=== PATIENT | female | born 1985 | race Caucasian/White ===

== ENCOUNTER 2016-10-06 14:47 | Emergency (ER) | payer OTHER ==
[~2016-10-06 14:47] MED LIST: BACT800T PO; LORA0.5T PO; PAXI20TA PO
[2016-10-06] MEDS ORDERED: CLINDAMYCIN INJ 900MG/6ML VIAL As Ordered ONE (17:11)
--- NOTE | 2016-10-06 17:32 | REP ---
Clinical: Bilateral upper extremity swelling evaluate for abscess. Technique: Real time vaughan scale and color evaluation using linear high frequency transducer. Findings: Ultrasound examination of the bilateral upper extremities performed and demonstrates significant diffuse bilateral subcutaneous edema. Right upper extremity at the level of the distal forearm in the site of maximal erythema demonstrates complex insinuating fluid without discrete drainable collection. Left upper extremity in the region of the antecubital fossa demonstrates complex insinuating fluid with small discrete collection measuring 6 x 9 x 13 mm. Impression: Diffuse bilateral subcutaneous edema with insinuating complex fluid on the right forearm and small complex collection in the left antecubital fossa. Signed by Rufino Leiva MD 10/06/2016 05:23 P
[2016-10-06 18:00] LABS: BASO % 0.7 % (0.0-1.0); EOS # 0.2 K/mm3 (0.0-0.50); EOS % 2.8 % (0.0-3.0); LARGE UNSTAINED CELL # 0.2 K/mm3 (0.0-0.4); LYMPH # 2.4 K/mm3 (1.5-6.5); MEAN CORPUSCULAR HEMOGLOBIN 28.6 pg (27.0-33.0); MEAN CORPUSCULAR HGB CONC 32.7 g/dl (32.0-36.5); MEAN CORPUSCULAR VOLUME 87.3 fl (80.0-96.0); MONO # 0.4 K/mm3 (0.0-0.8); MONO % 5.9 % (0.0-5.0); NEUTROPHILS # 3.6 K/mm3 (1.8-7.7); NEUTROPHILS % 52.6 % (36.0-66.0); PLATELET COUNT, AUTOMATED 333 k/mm3 (150-450); RED CELL DISTRIBUTION WIDTH 13.7 % (11.5-14.5); WHITE BLOOD COUNT 6.8 K/mm3 (4.0-10.0)
[2016-10-06 18:13] LABS: ANION GAP 5 MEQ/L (8-16); BLOOD UREA NITROGEN 12 MG/DL (7-18); CALCIUM LEVEL 9.5 MG/DL (8.5-10.1); CARBON DIOXIDE LEVEL 32 MEQ/L (21-32); CHLORIDE LEVEL 102 MEQ/L (98-107); CREATININE FOR GFR 0.65 MG/DL (0.55-1.02); GLOMERULAR FILTRATION RATE > 60.0 (>60); GLUCOSE, FASTING 94 MG/DL (70-105); POTASSIUM SERUM 4.2 MEQ/L (3.5-5.1); SODIUM LEVEL 139 MEQ/L (136-145)
[2016-10-06 18:37] LABS: ERYTHROCYTE SEDIMENTATION RATE 8 mm/hr (0-20)
--- NOTE | 2016-10-06 20:20 | EDDOCDS ---
Nurse's Notes [facility] Name: Marla Washington Age: 31 yrs Sex: Female : 1985 Arrival Date: 10/06/2016 Time: 14:47 Bed I1 / M1 Private MD: Violetta Mancini S Diagnosis: Cellulitis of left upper limb;Cellulitis of right upper limb Presentation: 10/06 15:00 Presenting complaint: Patient states: redness and swelling to LAC and right forearm. srm symptoms for 2 days. Adult Sepsis Screening: The patient does not have new or worsening altered mentation. Patient's respiratory rate is less than 22. Systolic blood pressure is greater than 100. Patient has a qSOFA score of 0- Negative Sepsis Screen. Suicide/Homicide risk assessment- the patient denies having any suicidal and/or homicidal ideations and does not present with any other emotional, behavioral or mental health complaints. Status: Patient is not a social services analyst or dependent. Transition of care: patient was not received from another setting of care. 15:00 Acuity: KRISH Level 3 srm 15:00 Method Of Arrival: Walkin/Carried/Asstd srm Triage Assessment: 15:03 General: Appears in no apparent distress, Behavior is appropriate for age, cooperative. srm Pain: Pain currently is 7 out of 10 on a pain scale. At worst was 10 out of 10 on a pain scale. HIV screening NA for this visit Offered previously. 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 Methadone 35mg Oral once daily (Last dose: 10/06/2016) 2. albuterol sulfate 90 mcg/actuation Inhl HFAA every 4-6 hours prn - PMHx: Bipolar disorder; Hepatitis C; Kidney stones; polysubstance abuse; Asthma; SVT; - PSHx: HERNIA REPAIR; (July 2011); Cardiac Ablation; Sinus Surgery; KIDNEY STENTS; Ovarian Cystectomy- Left; Laparoscopy; - Social history: Smoking status: Patient uses tobacco products, current every day smoker. No barriers to communication noted, The patient speaks fluent Maldivian, Speaks appropriately for age. - Family history: Not pertinent. - : The pt / caregiver states he / she is not on anticoagulants. Home medication list is obtained from the patient. - Exposure Risk Screening:: None identified. Screenin:49 Screening information is obtained from the patient. Fall risk: No risks identified. jmk Assistance ADL's: requires no assistance with activities of daily living. Abuse/DV Screen: The patient / caregiver reports he/she is:. Nutritional screening: No deficits noted. Advance Directives: Currently, there is no health care proxy. There is no active DNR order. There is no living will. 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 Advance directive information has not previously been placed in an [facility] medical record. home support is adequate. Assessment: 17:00 Adult Sepsis Screening: The patient does not have new or worsening altered mentation. kc3 Patient's respiratory rate is less than 22. Systolic blood pressure is greater than 100. Patient has a qSOFA score of 0- Negative Sepsis Screen. 17:49 General: Appears in no apparent distress, alert and cooperative. 2" area of redness jmk swelling and firmness to right forearm. 3" area of swelling with redness and increased warmth to left ac space. Pulses intact. Multiple tract mercedes over both forearms. openly admits to intravenous drug use.. 18:28 General: Appears resting with eyes closed resp easy and regular. clindamycin infusing jmk without event. 19:28 General: Appears in no apparent distress, assumed care of pt at this time, rr even and af2 unlabored. offers no complaints. . 20:17 General: Appears in no apparent distress, Behavior is cooperative. Pain: Location: mcp right arm and left arm Pain currently is 3 out of 10 on a pain scale. Neurological: No deficits noted. Respiratory: Airway is patent Respiratory effort is even, unlabored. Derm: Skin is pink, warm & dry. Abscess located on right arm and left arm is hot to touch, is red, is raised. Musculoskeletal: Circulation, motion, and sensation intact. Social Work Consult: 20:19 LWBS/AMA AMA: Patient is refusing further stabilizing treatment at [facility], although cl offered treatment regardless of method of payment or ability to pay. Patient is aware that this action is being undertaken against the advice of the medical staff at [facility]. Pt. has capacity to understand the potential consequences of this choice. pt did notify ED staff. Pt left before being seen by PSA. Vital Signs: 14:48 BP 148 / 89; Pulse 93; Resp 18 S; Temp 97.8(O); Pulse Ox 98% on R/A; Weight 70.76 kg dd6 (R); Height 5 ft. 4 in. (162.56 cm) (R); 14:48 Body Mass Index 26.78 (70.76 kg, 162.56 cm) dd6 Vitals: 14:48 Log In Time: October 06, 2016 at 14:46. dd6 ED Course: 14:48 Patient visited by Carson Woodson PCA. dd6 14:48 Violetta Mancini is Private Physician. dd6 14:48 Patient moved to Waiting dd6 14:49 Patient moved to Pre RCE dd6 15:01 Triage Initiated srm 16:02 Patient visited by Diana Altamirano PCA. jb5 16:02 Patient moved to Triage 3 jb5 16:33 Patient visited by Diana Altamirano PCA. jb5 16:40 Brandt [facility]-C [facility]. ck7 16:40 Caitlin García MD is Attending Physician. ck7 16:40 Patient visited by Brandt Javier RPA-C. ck7 16:52 Patient moved to I1 / M1 dy 17:09 [facility] Payment Agreement was scanned into [employer] and attached to record. gjb 17:10 Patient visited by Brandt Javier RPA-C. ck7 17:44 CBC with Diff Sent. nb2 17:44 MED Profile Sent. nb2 17:44 -Blood Culture Sent. nb2 17:44 Lactic Acid (Saez tube on ice) Sent. nb2 17:44 ESR Sent. nb2 17:44 CRP Sent. nb2 17:44 BLOOD CULTURES Sent. nb2 17:44 Inserted saline lock: 22 gauge in right and blood collected. The patient tolerated the dy procedure well. upper arm. 17:49 The patient / caregiver is instructed regarding the plan of care and ED course. jmk 17:49 Missed attempts: 20 gauge in right antecubital area. jmk 18:12 Patient visited by Brandt Javier RPA-C. ck7 18:12 EXTREMITY NON VASCUL LIMITED Returned. EDMS 18:28 Patient visited by Yury Hammonds RN. jmk 19:02 Patient visited by Brandt Javier RPA-C. ck7 19:28 Patient visited by Berta Mace RN. af2 20:01 Patient visited by Brandt Javier RPA-C. ck7 20:02 Violetta Mancini is Referral Physician. ck7 20:18 Discontinued lock intact, bleeding controlled, pressure dressing applied, No mcp redness/swelling at site. No procedures done that require assistance. Administered Medications: 17:46 Drug: NS 0.9% 1000 ml Route: IV; Rate: bolus; Site: right upper arm; jmk 17:46 Drug: Clindamycin 900 mg Route: IVPB; Infused Over: 30 mins; Site: left upper arm; [facility] Order Results: Lab Order: CBC with Diff; SPEC'M 10/06/16 17:40 Test: WHITE BLOOD COUNT; Value: 6.8; Range: 4.0-10.0; Units: K/mm3; Status: F Test: RED BLOOD COUNT; Value: 5.18; Range: 4.00-5.40; Units: M/mm3; Status: F Test: HEMOGLOBIN; Value: 14.8; Range: 12.0-16.0; Units: g/dl; Status: F Test: HEMATOCRIT; Value: 45.2; Range: 36.0-47.0; Units: %; Status: F Test: MEAN CORPUSCULAR VOLUME; Value: 87.3; Range: 80.0-96.0; Units: fl; Status: F Test: MEAN CORPUSCULAR HEMOGLOBIN; Value: 28.6; Range: 27.0-33.0; Units: pg; Status: F Test: MEAN CORPUSCULAR HGB CONC; Value: 32.7; Range: 32.0-36.5; Units: g/dl; Status: F Test: RED CELL DISTRIBUTION WIDTH; Value: 13.7; Range: 11.5-14.5; Units: %; Status: F Test: PLATELET COUNT, AUTOMATED; Value: 333; Range: 150-450; Units: k/mm3; Status: F Test: NEUTROPHILS %; Value: 52.6; Range: 36.0-66.0; Units: %; Status: F Test: LYMPH %; Value: 35.0; Range: 24.0-44.0; Units: %; Status: F Test: MONO %; Value: 5.9; Range: 0.0-5.0; Abnormal: Above high normal; Units: %; Status: F Test: EOS %; Value: 2.8; Range: 0.0-3.0; Units: %; Status: F Test: BASO %; Value: 0.7; Range: 0.0-1.0; Units: %; Status: F Test: LARGE UNSTAINED CELL %; Value: 3.0; Range: 0.0-4.0; Units: %; Status: F Test: NEUTROPHILS #; Value: 3.6; Range: 1.8-7.7; Units: K/mm3; Status: F Test: LYMPH #; Value: 2.4; Range: 1.5-6.5; Units: K/mm3; Status: F Test: MONO #; Value: 0.4; Range: 0.0-0.8; Units: K/mm3; Status: F Test: EOS #; Value: 0.2; Range: 0.0-0.50; Units: K/mm3; Status: F Test: BASO #; Value: 0.0; Range: 0.0-0.2; Units: K/mm3; Status: F Test: LARGE UNSTAINED CELL #; Value: 0.2; Range: 0.0-0.4; Units: K/mm3; Status: F Lab Order: MED Profile; SPEC'M 10/06/16 17:40 Test: GLUCOSE, FASTING; Value: 94; Range: 70-105; Units: MG/DL; Status: F Test: BLOOD UREA NITROGEN; Value: 12; Range: 7-18; Units: MG/DL; Status: F Test: CREATININE FOR GFR; Value: 0.65; Range: 0.55-1.02; Units: MG/DL; Status: F Test: GLOMERULAR FILTRATION RATE; Value: > 60.0; Range: >60; Status: F Test: SODIUM LEVEL; Value: 139; Range: 136-145; Units: MEQ/L; Status: F Test: POTASSIUM SERUM; Value: 4.2; Range: 3.5-5.1; Units: MEQ/L; Status: F Test: CHLORIDE LEVEL; Value: 102; Range: 98-107; Units: MEQ/L; Status: F Test: CARBON DIOXIDE LEVEL; Value: 32; Range: 21-32; Units: MEQ/L; Status: F Test: ANION GAP; Value: 5; Range: 8-16; Abnormal: Below low normal; Units: MEQ/L; Status: F Test: CALCIUM LEVEL; Value: 9.5; Range: 8.5-10.1; Units: MG/DL; Status: F Test Note: ; Units are mL/min/1.73 m2 Chronic Kidney Disease Staging per NKF: Stage I & II GFR >=60 Normal to Mildly Decreased Stage III GFR 30-59 Moderately Decreased Stage IV GFR 15-29 Severely Decreased Stage V GFR <15 Very Little GFR Left ESRD GFR <15 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 Lab Order: Lactic Acid (Saez tube on ice); SPEC'M 10/06/16 17:40 Test: LACTIC ACID LEVEL, LACTATE; Value: 2.0; Range: 0.4-2.0; Units: MMOL/L; Status: F Lab Order: ESR; SPEC' 10/06/16 17:40 Test: ERYTHROCYTE SEDIMENTATION RATE; Value: 8; Range: 0-20; Units: mm/hr; Status: F Lab Order: CRP; SPEC'M 10/06/16 17:40 Test: C REACTIVE PROTEIN QUANTITATIV; Value: 2.46; Range: 0.00-0.30; Abnormal: Above high normal; Units: MG/DL; Status: F Radiology Order: EXTREMITY NON VASCUL LIMITED Test: EXTREMITY NON VASCUL LIMITED REASON FOR EXAMINATION: R/O LEFT AC ABSCESS, R FOREARM;Deformity/Swelling; Clinical: Bilateral upper extremity swelling evaluate for abscess.; ; Technique: Real time saez scale and color evaluation using linear high frequency; transducer.; ; Findings:; Ultrasound examination of the bilateral upper extremities performed and; demonstrates significant diffuse bilateral subcutaneous edema.; ; Right upper extremity at the level of the distal forearm in the site of maximal; erythema demonstrates complex insinuating fluid without discrete drainable; collection.; ; Left upper extremity in the region of the antecubital fossa demonstrates complex; insinuating fluid with small discrete collection measuring 6 x 9 x 13 mm.; ; Impression:; Diffuse bilateral subcutaneous edema with insinuating complex fluid on the right; forearm and small complex collection in the left antecubital fossa.; ; ; Signed by; Rufino Leiva MD 10/06/2016 05:23 P; Outcome: 20:02 Patient left against medical advice. ck7 20:18 Discharge Assessment: patient administered narcotics - no. The following High Risk [facility] Discharge criteria are identified: None. Discharged to home ambulatory. Condition: stable. Discharge instructions given to patient, Instructed on discharge instructions, follow up and referral plans. medication usage, wound care, Demonstrated understanding of instructions, medications, Pt was receptive of discharge instructions/ teaching. Prescriptions given X 1. No special radiology studies were completed. Property sent home with patient. 20:19 Patient left the ED. [facility] Signatures: Dispatcher [employer] EDMS Yury Hammonds,RN RN Radha Real RN RN Xin Hernandez, RN RN Qasim Colón, PSA PSA Gabriel Naranjo, RN RN Diana Min, STATE GAME PROTECTOR STATE GAME PROTECTOR jb5 Carson Woodson, STATE GAME PROTECTOR STATE GAME PROTECTOR dd6 Brandt Javier, RPA-C RPA-Cck7 Berta MaceRN RN phillip2 Angélica Fried RN RN [id number] Emilie Martinez Nicole nb2 JENNA
--- NOTE | 2016-10-06 20:20 | EDDOCDS ---
Physician Documentation [facility] Name: Marla Washington Age: 31 yrs Sex: Female : 1985 Arrival Date: 10/06/2016 Time: 14:47 Bed I1 / M1 Private MD: Violetta Mancini S Disposition: 10/06/16 20:02 Patient has left against medical advice. Impression: Cellulitis of left upper limb, Cellulitis of right upper limb. - Patients states they are going to Home/Self Care. - Condition is Stable. - Discharge Instructions: Cellulitis. - Prescriptions for Clindamycin HCl 300 mg Oral Capsule - take 1 capsule by ORAL route every 6 hours; 40 capsule. Medication Reconciliation, Local Pharmacy Hours form. Follow up: Emergency Department; When: As needed; Reason: Recheck today's complaints, Worsening of conditions, Continuance of care. Follow up: Violetta Mancini; When: 2 - 3 days; Reason: Recheck today's complaints, Continuance of care. - Problem is new. - Symptoms are unchanged. - Notes: YOU WERE OFFERED ADMISSION TONIGHT AND HAVE DECLINED, PLEASE RETURN TO THE ER TOMORROW MORNING FOR RE-EVALUATION, YOU ARE BEING GIVEN A SCRIPT FOR CLINDAMYCIN IN CASE YOU ARE UNABLE TO COME BACK TOMORROW, IT IS STRONGLY ADVISED THAT YOU COME BACK TO HAVE THIS MONITORED Historical: - Allergies: no known allergies; - Home Meds: 1. Methadone 35mg Oral once daily (Last dose: 10/06/2016) 2. albuterol sulfate 90 mcg/actuation Inhl HFAA every 4-6 hours prn - PMHx: Bipolar disorder; Hepatitis C; Kidney stones; polysubstance abuse; Asthma; SVT; - PSHx: HERNIA REPAIR; (July 2011); Cardiac Ablation; Sinus Surgery; KIDNEY STENTS; Ovarian Cystectomy- Left; Laparoscopy; - Social history: Smoking status: Patient uses tobacco products, current every day smoker. No barriers to communication noted, The patient speaks fluent Hungarian, Speaks appropriately for age. - Family history: Not pertinent. - : The pt / caregiver states he / she is not on anticoagulants. Home medication list is obtained from the patient. - Exposure Risk Screening:: None identified. 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 4 in. (162.56 cm) (R); 14:48 Body Mass Index 26.78 (70.76 kg, 162.56 cm) dd6 MDM: 16:46 -Blood Culture (Adults Only), peripheral from different site, or from device/port/PICC ck7 etc. if present ordered. 16:46 IV Saline Lock ordered. ck7 16:46 NS 0.9% 1000 ml IV at bolus once ordered. ck7 16:46 Clindamycin 900 mg IVPB once over 30 mins; dilute in 50mL of NS or D5W ordered. ck7 16:46 CBC with Diff Ordered. EDMS 16:46 MED Profile Ordered. EDMS 16:47 -Blood Culture Ordered. EDMS 16:47 Lactic Acid (Saez tube on ice) Ordered. EDMS 16:47 ESR Ordered. EDMS 16:47 CRP Ordered. EDMS 16:53 EXTREMITY NON VASCUL LIMITED Ordered. EDMS 17:02 -Blood Culture (Adults Only), peripheral from different site, or from device/port/PICC jb5 etc. if present complete. 17:04 BLOOD CULTURES Ordered. EDMS 17:09 [facility] Payment Agreement was scanned into [employer] and attached to record. gjb 17:09 Financial registration complete. gjb 18:12 CBC with Diff Reviewed. ck7 18:12 EXTREMITY NON VASCUL LIMITED Reviewed. ck7 20:10 CBC with Diff Reviewed. ck7 20:10 MED Profile Reviewed. ck7 20:10 CRP Reviewed. ck7 20:10 Lactic Acid (Saez tube on ice) Reviewed. ck7 20:10 ESR Reviewed. ck7 Administered Medications: 17:46 Drug: NS 0.9% 1000 ml Route: IV; Rate: bolus; Site: right upper arm; arelis 17:46 Drug: Clindamycin 900 mg Route: IVPB; Infused Over: 30 mins; Site: left upper arm; arelis Signatures: Dispatcher [employer] EDMS Yury Hammonds RN RN jmk Michelson, Staci, RN RN srm Peters, Mary, RN RN mcp Baker, Janet, KOBI CUSTODIAL AIDE jb5 Brandt Javier, RPA-C RPA-Cck7 Emilie Martinez The chart was reviewed and I authenticate all verbal orders and agree with the evaluation and treatment provided.Corrections: (The following items were deleted from the chart) 16:53 16:48 DUPLEX Ext. UPPER UNILATE+US ordered. EDMS EDMS Attachments: 17:09 [facility] Payment Agreement karin [email or web address]
--- NOTE | 2016-10-08 21:20 | EDDOCDS ---
Nurse's Notes [facility] Name: Marla Washington Age: 31 yrs Sex: Female : 1985 Arrival Date: 10/06/2016 Time: 14:47 Bed I1 / M1 Private MD: Violetta Mancini S Diagnosis: Cellulitis of left upper limb;Cellulitis of right upper limb Presentation: 10/06 15:00 Presenting complaint: Patient states: redness and swelling to LAC and right forearm. srm symptoms for 2 days. Adult Sepsis Screening: The patient does not have new or worsening altered mentation. Patient's respiratory rate is less than 22. Systolic blood pressure is greater than 100. Patient has a qSOFA score of 0- Negative Sepsis Screen. Suicide/Homicide risk assessment- the patient denies having any suicidal and/or homicidal ideations and does not present with any other emotional, behavioral or mental health complaints. Status: Patient is not a director of therapy services or dependent. Transition of care: patient was not received from another setting of care. 15:00 Acuity: KRISH Level 3 srm 15:00 Method Of Arrival: Walkin/Carried/Asstd srm Triage Assessment: 15:03 General: Appears in no apparent distress, Behavior is appropriate for age, cooperative. srm Pain: Pain currently is 7 out of 10 on a pain scale. At worst was 10 out of 10 on a pain scale. HIV screening NA for this visit Offered previously. 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 Methadone 35mg Oral once daily (Last dose: 10/06/2016) 2. albuterol sulfate 90 mcg/actuation Inhl HFAA every 4-6 hours prn - PMHx: Bipolar disorder; Hepatitis C; Kidney stones; polysubstance abuse; Asthma; SVT; - PSHx: HERNIA REPAIR; (July 2011); Cardiac Ablation; Sinus Surgery; KIDNEY STENTS; Ovarian Cystectomy- Left; Laparoscopy; - Social history: Smoking status: Patient uses tobacco products, current every day smoker. No barriers to communication noted, The patient speaks fluent [place], Speaks appropriately for age. - Family history: Not pertinent. - : The pt / caregiver states he / she is not on anticoagulants. Home medication list is obtained from the patient. - Exposure Risk Screening:: None identified. Screenin:49 Screening information is obtained from the patient. Fall risk: No risks identified. jmk Assistance ADL's: requires no assistance with activities of daily living. Abuse/DV Screen: The patient / caregiver reports he/she is:. Nutritional screening: No deficits noted. Advance Directives: Currently, there is no health care proxy. There is no active DNR order. There is no living will. There is no Power of Patient Accounts Clerk. Advance directive information has not previously been placed in an [facility] medical record. home support is adequate. Assessment: 17:00 Adult Sepsis Screening: The patient does not have new or worsening altered mentation. kc3 Patient's respiratory rate is less than 22. Systolic blood pressure is greater than 100. Patient has a qSOFA score of 0- Negative Sepsis Screen. 17:49 General: Appears in no apparent distress, alert and cooperative. 2" area of redness jmk swelling and firmness to right forearm. 3" area of swelling with redness and increased warmth to left ac space. Pulses intact. Multiple tract mercedes over both forearms. openly admits to intravenous drug use.. 18:28 General: Appears resting with eyes closed resp easy and regular. clindamycin infusing jmk without event. 19:28 General: Appears in no apparent distress, assumed care of pt at this time, rr even and af2 unlabored. offers no complaints. . 20:17 General: Appears in no apparent distress, Behavior is cooperative. Pain: Location: mcp right arm and left arm Pain currently is 3 out of 10 on a pain scale. Neurological: No deficits noted. Respiratory: Airway is patent Respiratory effort is even, unlabored. Derm: Skin is pink, warm & dry. Abscess located on right arm and left arm is hot to touch, is red, is raised. Musculoskeletal: Circulation, motion, and sensation intact. Social Work Consult: 20:19 LWBS/AMA AMA: Patient is refusing further stabilizing treatment at [facility], although cl offered treatment regardless of method of payment or ability to pay. Patient is aware that this action is being undertaken against the advice of the medical staff at [facility]. Pt. has capacity to understand the potential consequences of this choice. pt did notify ED staff. Pt left before being seen by PSA. Vital Signs: 14:48 BP 148 / 89; Pulse 93; Resp 18 S; Temp 97.8(O); Pulse Ox 98% on R/A; Weight 70.76 kg dd6 (R); Height 5 ft. 4 in. (162.56 cm) (R); 20:15 BP 122 / 80; Pulse 86; Resp 18; Temp 97.4(O); Pulse Ox 100% on R/A; Pain 3/10; mcp 14:48 Body Mass Index 26.78 (70.76 kg, 162.56 cm) dd6 Vitals: 14:48 Log In Time: October 06, 2016 at 14:46. dd6 ED Course: 14:48 Patient visited by Carson Woodson PCA. dd6 14:48 Violetta Mancini is Private Physician. dd6 14:48 Patient moved to Waiting dd6 14:49 Patient moved to Pre RCE dd6 15:01 Triage Initiated srm 16:02 Patient visited by Diana Altamirano PCA. jb5 16:02 Patient moved to Triage 3 jb5 16:33 Patient visited by Diana Altamirano PCA. jb5 16:40 Brandt Javier RPA-C is PHCP. ck7 16:40 Caitlin García MD is Attending Physician. ck7 16:40 Patient visited by Brandt Javier RPA-C. ck7 16:52 Patient moved to I1 / M1 dy 17:09 [facility] Payment Agreement was scanned into [employer] and attached to record. gjb 17:10 Patient visited by Brandt Javier RPA-C. ck7 17:44 CBC with Diff Sent. nb2 17:44 MED Profile Sent. nb2 17:44 -Blood Culture Sent. nb2 17:44 Lactic Acid (Saez tube on ice) Sent. nb2 17:44 ESR Sent. nb2 17:44 CRP Sent. nb2 17:44 BLOOD CULTURES Sent. nb2 17:44 Inserted saline lock: 22 gauge in right and blood collected. The patient tolerated the dy procedure well. upper arm. 17:49 The patient / caregiver is instructed regarding the plan of care and ED course. jmk 17:49 Missed attempts: 20 gauge in right antecubital area. jmk 18:12 Patient visited by Brandt Javier RPA-C. ck7 18:12 EXTREMITY NON VASCUL LIMITED Returned. EDMS 18:28 Patient visited by Yury Hammonds,COLEMAN. jmk 19:02 Patient visited by Brandt Javier RPA-C. ck7 19:28 Patient visited by Berta Mace RN. af2 20:01 Patient visited by Brandt Javier RPA-C. ck7 20:02 Violetta Mancini is Referral Physician. ck7 20:18 Discontinued lock intact, bleeding controlled, pressure dressing applied, No mcp redness/swelling at site. No procedures done that require assistance. 10/07 09:34 Refusal of Services was scanned into [employer] Website and attached to record. 09:34 T-Sheet-- Draft Copy was scanned into [employer] and attached to record. gb Administered Medications: 10/06 17:46 Drug: NS 0.9% 1000 ml Route: IV; Rate: bolus; Site: right upper arm; rivka 17:46 Drug: Clindamycin 900 mg Route: IVPB; Infused Over: 30 mins; Site: left upper arm; rivka Attachments: 10/07 09:34 Refusal of Services Order Results: Lab Order: CBC with Diff; SPEC'M 10/06/16 17:40 Test: WHITE BLOOD COUNT; Value: 6.8; Range: 4.0-10.0; Units: K/mm3; Status: F Test: RED BLOOD COUNT; Value: 5.18; Range: 4.00-5.40; Units: M/mm3; Status: F Test: HEMOGLOBIN; Value: 14.8; Range: 12.0-16.0; Units: g/dl; Status: F Test: HEMATOCRIT; Value: 45.2; Range: 36.0-47.0; Units: %; Status: F Test: MEAN CORPUSCULAR VOLUME; Value: 87.3; Range: 80.0-96.0; Units: fl; Status: F Test: MEAN CORPUSCULAR HEMOGLOBIN; Value: 28.6; Range: 27.0-33.0; Units: pg; Status: F Test: MEAN CORPUSCULAR HGB CONC; Value: 32.7; Range: 32.0-36.5; Units: g/dl; Status: F Test: RED CELL DISTRIBUTION WIDTH; Value: 13.7; Range: 11.5-14.5; Units: %; Status: F Test: PLATELET COUNT, AUTOMATED; Value: 333; Range: 150-450; Units: k/mm3; Status: F Test: NEUTROPHILS %; Value: 52.6; Range: 36.0-66.0; Units: %; Status: F Test: LYMPH %; Value: 35.0; Range: 24.0-44.0; Units: %; Status: F Test: MONO %; Value: 5.9; Range: 0.0-5.0; Abnormal: Above high normal; Units: %; Status: F Test: EOS %; Value: 2.8; Range: 0.0-3.0; Units: %; Status: F Test: BASO %; Value: 0.7; Range: 0.0-1.0; Units: %; Status: F Test: LARGE UNSTAINED CELL %; Value: 3.0; Range: 0.0-4.0; Units: %; Status: F Test: NEUTROPHILS #; Value: 3.6; Range: 1.8-7.7; Units: K/mm3; Status: F Test: LYMPH #; Value: 2.4; Range: 1.5-6.5; Units: K/mm3; Status: F Test: MONO #; Value: 0.4; Range: 0.0-0.8; Units: K/mm3; Status: F Test: EOS #; Value: 0.2; Range: 0.0-0.50; Units: K/mm3; Status: F Test: BASO #; Value: 0.0; Range: 0.0-0.2; Units: K/mm3; Status: F Test: LARGE UNSTAINED CELL #; Value: 0.2; Range: 0.0-0.4; Units: K/mm3; Status: F Lab Order: [facility] Profile; SPEC'M 10/06/16 17:40 Test: GLUCOSE, FASTING; Value: 94; Range: 70-105; Units: MG/DL; Status: F Test: BLOOD UREA NITROGEN; Value: 12; Range: 7-18; Units: MG/DL; Status: F Test: CREATININE FOR GFR; Value: 0.65; Range: 0.55-1.02; Units: MG/DL; Status: F Test: GLOMERULAR FILTRATION RATE; Value: > 60.0; Range: >60; Status: F Test: SODIUM LEVEL; Value: 139; Range: 136-145; Units: MEQ/L; Status: F Test: POTASSIUM SERUM; Value: 4.2; Range: 3.5-5.1; Units: MEQ/L; Status: F Test: CHLORIDE LEVEL; Value: 102; Range: 98-107; Units: MEQ/L; Status: F Test: CARBON DIOXIDE LEVEL; Value: 32; Range: 21-32; Units: MEQ/L; Status: F Test: ANION GAP; Value: 5; Range: 8-16; Abnormal: Below low normal; Units: MEQ/L; Status: F Test: CALCIUM LEVEL; Value: 9.5; Range: 8.5-10.1; Units: MG/DL; Status: F Test Note: ; Units are mL/min/1.73 m2 Chronic Kidney Disease Staging per NKF: Stage I & II GFR >=60 Normal to Mildly Decreased Stage III GFR 30-59 Moderately Decreased Stage IV GFR 15-29 Severely Decreased Stage V GFR <15 Very Little GFR Left ESRD GFR <15 on COREMAKING SUPERVISOR Lab Order: -Blood Culture; SPEC'M 10/06/16 17:40 Test: BLOOD CULTURE; Value: No growth after 24 hours . All specimens observed; Status: F Test: BLOOD CULTURE; Value: for 5 days. Results final at that time.; Status: F Test: BLOOD CULTURE; Value: No Growth after 48 hours. All Specimens observed; Status: F Test: BLOOD CULTURE; Value: for 7 days. Results final at that time.; Status: F Lab Order: Lactic Acid (Saez tube on ice); SPEC'M 10/06/16 17:40 Test: LACTIC ACID LEVEL, LACTATE; Value: 2.0; Range: 0.4-2.0; Units: MMOL/L; Status: F Lab Order: ESR; SPEC'M 10/06/16 17:40 Test: ERYTHROCYTE SEDIMENTATION RATE; Value: 8; Range: 0-20; Units: mm/hr; Status: F Lab Order: CRP; SPEC' 10/06/16 17:40 Test: C REACTIVE PROTEIN QUANTITATIV; Value: 2.46; Range: 0.00-0.30; Abnormal: Above high normal; Units: MG/DL; Status: F Lab Order: BLOOD CULTURES; SPEC'M 10/06/16 17:40 Test: BLOOD CULTURE; Value: No growth after 24 hours . All specimens observed; Status: F Test: BLOOD CULTURE; Value: for 5 days. Results final at that time.; Status: F Test: BLOOD CULTURE; Value: No Growth after 48 hours. All Specimens observed; Status: F Test: BLOOD CULTURE; Value: for 7 days. Results final at that time.; Status: F Radiology Order: EXTREMITY NON VASCUL LIMITED Test: EXTREMITY NON VASCUL LIMITED REASON FOR EXAMINATION: R/O LEFT AC ABSCESS, R FOREARM;Deformity/Swelling; Clinical: Bilateral upper extremity swelling evaluate for abscess.; ; Technique: Real time saez scale and color evaluation using linear high frequency; transducer.; ; Findings:; Ultrasound examination of the bilateral upper extremities performed and; demonstrates significant diffuse bilateral subcutaneous edema.; ; Right upper extremity at the level of the distal forearm in the site of maximal; erythema demonstrates complex insinuating fluid without discrete drainable; collection.; ; Left upper extremity in the region of the antecubital fossa demonstrates complex; insinuating fluid with small discrete collection measuring 6 x 9 x 13 mm.; ; Impression:; Diffuse bilateral subcutaneous edema with insinuating complex fluid on the right; forearm and small complex collection in the left antecubital fossa.; ; ; Signed by; Rufino Leiva MD 10/06/2016 05:23 P; Outcome: 10/06 20:02 Patient left against medical advice. ck7 20:18 Discharge Assessment: patient administered narcotics - no. The following High Risk [facility] Discharge criteria are identified: None. Discharged to home ambulatory. Condition: stable. Discharge instructions given to patient, Instructed on discharge instructions, follow up and referral plans. medication usage, wound care, Demonstrated understanding of instructions, medications, Pt was receptive of discharge instructions/ teaching. Prescriptions given X 1. No special radiology studies were completed. Property sent home with patient. 20:19 Patient left the ED. [facility] Signatures: Dispatcher [employer] EDYury Skinner,Radha Jung RN, RN RN srm Peters, Mary, RN RN [facility] Shana, Qasim, PSA PSA cl Barnikos, Pauly, Reg Reg gb Gabriel Zhang RN Diana Heard, E COMMERCE MARKETING MANAGER E COMMERCE MARKETING MANAGER jb5 Carson Woodson, E COMMERCE MARKETING MANAGER E COMMERCE MARKETING MANAGER dd6 Brandt Javier, RPA-C RPA-Cck7 Berta Mace,RN RN af2 Angélica Fried RN RN kc3 Emilie Martinez Nicole nb2 Chart Complete MTDD
--- NOTE | 2016-10-08 21:20 | EDDOCDS ---
Physician Documentation [facility] Name: Marla Washington Age: 31 yrs Sex: Female : 1985 Arrival Date: 10/06/2016 Time: 14:47 Bed I1 / M1 Private MD: Violetta Mancini S Disposition: 10/06/16 20:02 Patient has left against medical advice. Impression: Cellulitis of left upper limb, Cellulitis of right upper limb. - Patients states they are going to Home/Self Care. - Condition is Stable. - Discharge Instructions: Cellulitis. - Prescriptions for Clindamycin HCl 300 mg Oral Capsule - take 1 capsule by ORAL route every 6 hours; 40 capsule. Medication Reconciliation, Local Pharmacy Hours form. Follow up: Emergency Department; When: As needed; Reason: Recheck today's complaints, Worsening of conditions, Continuance of care. Follow up: Violetta Mancini; When: 2 - 3 days; Reason: Recheck today's complaints, Continuance of care. - Problem is new. - Symptoms are unchanged. - Notes: YOU WERE OFFERED ADMISSION TONIGHT AND HAVE DECLINED, PLEASE RETURN TO THE ER TOMORROW MORNING FOR RE-EVALUATION, YOU ARE BEING GIVEN A SCRIPT FOR CLINDAMYCIN IN CASE YOU ARE UNABLE TO COME BACK TOMORROW, IT IS STRONGLY ADVISED THAT YOU COME BACK TO HAVE THIS MONITORED Historical: - Allergies: no known allergies; - Home Meds: 1. Methadone 35mg Oral once daily (Last dose: 10/06/2016) 2. albuterol sulfate 90 mcg/actuation Inhl HFAA every 4-6 hours prn - PMHx: Bipolar disorder; Hepatitis C; Kidney stones; polysubstance abuse; Asthma; SVT; - PSHx: HERNIA REPAIR; (July 2011); Cardiac Ablation; Sinus Surgery; KIDNEY STENTS; Ovarian Cystectomy- Left; Laparoscopy; - Social history: Smoking status: Patient uses tobacco products, current every day smoker. No barriers to communication noted, The patient speaks fluent Maltese, Speaks appropriately for age. - Family history: Not pertinent. - : The pt / caregiver states he / she is not on anticoagulants. Home medication list is obtained from the patient. - Exposure Risk Screening:: None identified. DITCH RIDER: 10/06 15:03 LMP 09/24/2016 srm Vital Signs: 14:48 BP 148 / 89; Pulse 93; Resp 18 S; Temp 97.8(O); Pulse Ox 98% on R/A; Weight 70.76 kg / dd6 156 lbs (R); Height 5 ft. 4 in. (162.56 cm) (R); 20:15 BP 122 / 80; Pulse 86; Resp 18; Temp 97.4(O); Pulse Ox 100% on R/A; Pain 3/10; mcp 14:48 Body Mass Index 26.78 (70.76 kg, 162.56 cm) dd6 MDM: 16:46 -Blood Culture (Adults Only), peripheral from different site, or from device/port/PICC ck7 etc. if present ordered. 16:46 IV Saline Lock ordered. ck7 16:46 NS 0.9% 1000 ml IV at bolus once ordered. ck7 16:46 Clindamycin 900 mg IVPB once over 30 mins; dilute in 50mL of NS or D5W ordered. ck7 16:46 CBC with Diff Ordered. EDMS 16:46 MED Profile Ordered. EDMS 16:47 -Blood Culture Ordered. EDMS 16:47 Lactic Acid (Saez tube on ice) Ordered. EDMS 16:47 ESR Ordered. EDMS 16:47 CRP Ordered. EDMS 16:53 EXTREMITY NON VASCUL LIMITED Ordered. EDMS 17:02 -Blood Culture (Adults Only), peripheral from different site, or from device/port/PICC jb5 etc. if present complete. 17:04 BLOOD CULTURES Ordered. EDMS 17:09 [facility] Payment Agreement was scanned into [employer] and attached to record. gjb 17:09 Financial registration complete. gjb 18:12 CBC with Diff Reviewed. ck7 18:12 EXTREMITY NON VASCUL LIMITED Reviewed. ck7 20:10 CBC with Diff Reviewed. ck7 20:10 MED Profile Reviewed. ck7 20:10 CRP Reviewed. ck7 20:10 Lactic Acid (Saez tube on ice) Reviewed. ck7 20:10 ESR Reviewed. ck7 10/07 09:34 Refusal of Services was scanned into [employer] and attached to record. gb 09:34 T-Sheet-- Draft Copy was scanned into [employer] and attached to record. gb Administered Medications: 10/06 17:46 Drug: NS 0.9% 1000 ml Route: IV; Rate: bolus; Site: right upper arm; arelis 17:46 Drug: Clindamycin 900 mg Route: IVPB; Infused Over: 30 mins; Site: left upper arm; arelis Signatures: Dispatcher [employer] EDMS Yury Hammonds RN RN jmk Michelson, Staci, RN Xin Spivey RN COLEMAN mcp Freeman, Pauly, Reg Reg gb Altamirano, Diana, MERCHANDISE HANDLER MERCHANDISE HANDLER jb5 Brandt Javier, RPA-C RPA-Cck7 Emilie Martinez The chart was reviewed and I authenticate all verbal orders and agree with the evaluation and treatment provided.Corrections: (The following items were deleted from the chart) 16:53 16:48 DUPLEX Ext. UPPER UNILATE+US ordered. EDMS EDMS Attachments: 17:09 [facility] Payment Agreement karin 09:34 T-Sheet-- Draft Copy gb Chart Complete MTDD
--- NOTE | 2016-10-08 21:20 | EDDOCDS ---
Physician Documentation [facility] Name: Marla Washington Age: 31 yrs Sex: Female : 1985 Arrival Date: 10/06/2016 Time: 14:47 Bed I1 / M1 Private MD: Violetta Mancini S Disposition: 10/06/16 20:02 Patient has left against medical advice. Impression: Cellulitis of left upper limb, Cellulitis of right upper limb. - Patients states they are going to Home/Self Care. - Condition is Stable. - Discharge Instructions: Cellulitis. - Prescriptions for Clindamycin HCl 300 mg Oral Capsule - take 1 capsule by ORAL route every 6 hours; 40 capsule. Medication Reconciliation, Local Pharmacy Hours form. Follow up: Emergency Department; When: As needed; Reason: Recheck today's complaints, Worsening of conditions, Continuance of care. Follow up: Violetta Mancini; When: 2 - 3 days; Reason: Recheck today's complaints, Continuance of care. - Problem is new. - Symptoms are unchanged. - Notes: YOU WERE OFFERED ADMISSION TONIGHT AND HAVE DECLINED, PLEASE RETURN TO THE ER TOMORROW MORNING FOR RE-EVALUATION, YOU ARE BEING GIVEN A SCRIPT FOR CLINDAMYCIN IN CASE YOU ARE UNABLE TO COME BACK TOMORROW, IT IS STRONGLY ADVISED THAT YOU COME BACK TO HAVE THIS MONITORED Historical: - Allergies: no known allergies; - Home Meds: 1. Methadone 35mg Oral once daily (Last dose: 10/06/2016) 2. albuterol sulfate 90 mcg/actuation Inhl HFAA every 4-6 hours prn - PMHx: Bipolar disorder; Hepatitis C; Kidney stones; polysubstance abuse; Asthma; SVT; - PSHx: HERNIA REPAIR; (July 2011); Cardiac Ablation; Sinus Surgery; KIDNEY STENTS; Ovarian Cystectomy- Left; Laparoscopy; - Social history: Smoking status: Patient uses tobacco products, current every day smoker. No barriers to communication noted, The patient speaks fluent Kyrgyz, Speaks appropriately for age. - Family history: Not pertinent. - : The pt / caregiver states he / she is not on anticoagulants. Home medication list is obtained from the patient. - Exposure Risk Screening:: None identified. 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 4 in. (162.56 cm) (R); 20:15 BP 122 / 80; Pulse 86; Resp 18; Temp 97.4(O); Pulse Ox 100% on R/A; Pain 3/10; mcp 14:48 Body Mass Index 26.78 (70.76 kg, 162.56 cm) dd6 MDM: 16:46 -Blood Culture (Adults Only), peripheral from different site, or from device/port/PICC ck7 etc. if present ordered. 16:46 IV Saline Lock ordered. ck7 16:46 NS 0.9% 1000 ml IV at bolus once ordered. ck7 16:46 Clindamycin 900 mg IVPB once over 30 mins; dilute in 50mL of NS or D5W ordered. ck7 16:46 CBC with Diff Ordered. EDMS 16:46 MED Profile Ordered. EDMS 16:47 -Blood Culture Ordered. EDMS 16:47 Lactic Acid (Saez tube on ice) Ordered. EDMS 16:47 ESR Ordered. EDMS 16:47 CRP Ordered. EDMS 16:53 EXTREMITY NON VASCUL LIMITED Ordered. EDMS 17:02 -Blood Culture (Adults Only), peripheral from different site, or from device/port/PICC jb5 etc. if present complete. 17:04 BLOOD CULTURES Ordered. EDMS 17:09 [facility] Payment Agreement was scanned into [employer] and attached to record. gjb 17:09 Financial registration complete. gjb 18:12 CBC with Diff Reviewed. ck7 18:12 EXTREMITY NON VASCUL LIMITED Reviewed. ck7 20:10 CBC with Diff Reviewed. ck7 20:10 MED Profile Reviewed. ck7 20:10 CRP Reviewed. ck7 20:10 Lactic Acid (Saez tube on ice) Reviewed. ck7 20:10 ESR Reviewed. ck7 10/07 09:34 Refusal of Services was scanned into [employer] and attached to record. gb 09:34 T-Sheet-- Draft Copy was scanned into [employer] and attached to record. gb Administered Medications: 10/06 17:46 Drug: NS 0.9% 1000 ml Route: IV; Rate: bolus; Site: right upper arm; arelis 17:46 Drug: Clindamycin 900 mg Route: IVPB; Infused Over: 30 mins; Site: left upper arm; arelis Signatures: Dispatcher [employer] EDMS Yury Hammonds RN RN jmk Michelson, Staci, RN Xin Spivey RN COLEMAN mcp Freeman, Pauly, Reg Reg gb Altamirano, Diana, SENIOR BUSINESS ANALYST SENIOR BUSINESS ANALYST jb5 Brandt Javier, RPA-C RPA-Cck7 Emilie Martinez The chart was reviewed and I authenticate all verbal orders and agree with the evaluation and treatment provided.Corrections: (The following items were deleted from the chart) 16:53 16:48 DUPLEX Ext. UPPER UNILATE+US ordered. EDMS EDMS Attachments: 17:09 [facility] Payment Agreement karin 09:34 T-Sheet-- Draft Copy gb Chart Complete MTDD
--- NOTE | 2016-10-10 20:36 | EDDOCDS ---
Physician Documentation [facility] Name: Marla Washington Age: 31 yrs Sex: Female : 1985 Arrival Date: 10/06/2016 Time: 14:47 Bed I1 / M1 Private MD: Ada Mancnii S Disposition: 10/06/16 20:02 Patient has left against medical advice. Impression: Cellulitis of left upper limb, Cellulitis of right upper limb. - Patients states they are going to Home/Self Care. - Condition is Stable. - Discharge Instructions: Cellulitis. - Prescriptions for Clindamycin HCl 300 mg Oral Capsule - take 1 capsule by ORAL route every 6 hours; 40 capsule. Medication Reconciliation, Local Pharmacy Hours form. Follow up: Emergency Department; When: As needed; Reason: Recheck today's complaints, Worsening of conditions, Continuance of care. Follow up: Ada Mancini; When: 2 - 3 days; Reason: Recheck today's complaints, Continuance of care. - Problem is new. - Symptoms are unchanged. - Notes: YOU WERE OFFERED ADMISSION TONIGHT AND HAVE DECLINED, PLEASE RETURN TO THE ER TOMORROW MORNING FOR RE-EVALUATION, YOU ARE BEING GIVEN A SCRIPT FOR CLINDAMYCIN IN CASE YOU ARE UNABLE TO COME BACK TOMORROW, IT IS STRONGLY ADVISED THAT YOU COME BACK TO HAVE THIS MONITORED Historical: - Allergies: no known allergies; - Home Meds: 1. Methadone 35mg Oral once daily (Last dose: 10/06/2016) 2. albuterol sulfate 90 mcg/actuation Inhl HFAA every 4-6 hours prn - PMHx: Bipolar disorder; Hepatitis C; Kidney stones; polysubstance abuse; Asthma; SVT; - PSHx: HERNIA REPAIR; (July 2011); Cardiac Ablation; Sinus Surgery; KIDNEY STENTS; Ovarian Cystectomy- Left; Laparoscopy; - Social history: Smoking status: Patient uses tobacco products, current every day smoker. No barriers to communication noted, The patient speaks fluent Georgian, Speaks appropriately for age. - Family history: Not pertinent. - : The pt / caregiver states he / she is not on anticoagulants. Home medication list is obtained from the patient. - Exposure Risk Screening:: None identified. 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 4 in. (162.56 cm) (R); 20:15 BP 122 / 80; Pulse 86; Resp 18; Temp 97.4(O); Pulse Ox 100% on R/A; Pain 3/10; mcp 14:48 Body Mass Index 26.78 (70.76 kg, 162.56 cm) dd6 MDM: 16:46 -Blood Culture (Adults Only), peripheral from different site, or from device/port/PICC ck7 etc. if present ordered. 16:46 IV Saline Lock ordered. ck7 16:46 NS 0.9% 1000 ml IV at bolus once ordered. ck7 16:46 Clindamycin 900 mg IVPB once over 30 mins; dilute in 50mL of NS or D5W ordered. ck7 16:46 CBC with Diff Ordered. EDMS 16:46 MED Profile Ordered. EDMS 16:47 -Blood Culture Ordered. EDMS 16:47 Lactic Acid (Saez tube on ice) Ordered. EDMS 16:47 ESR Ordered. EDMS 16:47 CRP Ordered. EDMS 16:53 EXTREMITY NON VASCUL LIMITED Ordered. EDMS 17:02 -Blood Culture (Adults Only), peripheral from different site, or from device/port/PICC jb5 etc. if present complete. 17:04 BLOOD CULTURES Ordered. EDMS 17:09 [facility] Payment Agreement was scanned into [employer] and attached to record. gjb 17:09 Financial registration complete. gjb 18:12 CBC with Diff Reviewed. ck7 18:12 EXTREMITY NON VASCUL LIMITED Reviewed. ck7 20:10 CBC with Diff Reviewed. ck7 20:10 MED Profile Reviewed. ck7 20:10 CRP Reviewed. ck7 20:10 Lactic Acid (Saez tube on ice) Reviewed. ck7 20:10 ESR Reviewed. ck7 10/07 09:34 Refusal of Services was scanned into [employer] and attached to record. gb 09:34 T-Sheet-- Draft Copy was scanned into [employer] and attached to record. gb Administered Medications: 10/06 17:46 Drug: NS 0.9% 1000 ml Route: IV; Rate: bolus; Site: right upper arm; arelis 17:46 Drug: Clindamycin 900 mg Route: IVPB; Infused Over: 30 mins; Site: left upper arm; arelis Addendum: 10/10/2016 20:35 Radiology Callback: Radiology results faxed to primary care physician/provider. adafranklyn britt faxed us report. pt left ama. will fax to pcp in attempt for pcp to fu mlg. Signatures: Dispatcher [employer] EDMS Gladys Blue MD MD ml Knapp, Jean,RN RN Radha Real RN RN Xin Hernandez, RN RN mcp Pauly Millard, Reg Reg gb Diana Altamirano, IT PROGRAMMER IT PROGRAMMER jb5 Brandt Javier, RPA-C RPA-Cck7 Emilie Martinez The chart was reviewed and I authenticate all verbal orders and agree with the evaluation and treatment provided.Corrections: (The following items were deleted from the chart) 10/06 16:53 16:48 DUPLEX Ext. UPPER UNILATE+US ordered. EDPR EDPR Attachments: 17:09 [facility] Payment Agreement gjb 09:34 T-Sheet-- Draft Copy gb MTDD
--- NOTE | 2016-10-10 20:36 | EDDOCDS ---
Nurse's Notes [facility] Name: Marla Washington Age: 31 yrs Sex: Female : 1985 Arrival Date: 10/06/2016 Time: 14:47 Bed I1 / M1 Private MD: Violetta Mancini S Diagnosis: Cellulitis of left upper limb;Cellulitis of right upper limb Presentation: 10/06 15:00 Presenting complaint: Patient states: redness and swelling to LAC and right forearm. srm symptoms for 2 days. Adult Sepsis Screening: The patient does not have new or worsening altered mentation. Patient's respiratory rate is less than 22. Systolic blood pressure is greater than 100. Patient has a qSOFA score of 0- Negative Sepsis Screen. Suicide/Homicide risk assessment- the patient denies having any suicidal and/or homicidal ideations and does not present with any other emotional, behavioral or mental health complaints. Status: Patient is not a services host or dependent. Transition of care: patient was not received from another setting of care. 15:00 Acuity: KRISH Level 3 srm 15:00 Method Of Arrival: Walkin/Carried/Asstd srm Triage Assessment: 15:03 General: Appears in no apparent distress, Behavior is appropriate for age, cooperative. srm Pain: Pain currently is 7 out of 10 on a pain scale. At worst was 10 out of 10 on a pain scale. HIV screening NA for this visit Offered previously. 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 Methadone 35mg Oral once daily (Last dose: 10/06/2016) 2. albuterol sulfate 90 mcg/actuation Inhl HFAA every 4-6 hours prn - PMHx: Bipolar disorder; Hepatitis C; Kidney stones; polysubstance abuse; Asthma; SVT; - PSHx: HERNIA REPAIR; (July 2011); Cardiac Ablation; Sinus Surgery; KIDNEY STENTS; Ovarian Cystectomy- Left; Laparoscopy; - Social history: Smoking status: Patient uses tobacco products, current every day smoker. No barriers to communication noted, The patient speaks fluent Pakistani, Speaks appropriately for age. - Family history: Not pertinent. - : The pt / caregiver states he / she is not on anticoagulants. Home medication list is obtained from the patient. - Exposure Risk Screening:: None identified. Screenin:49 Screening information is obtained from the patient. Fall risk: No risks identified. jmk Assistance ADL's: requires no assistance with activities of daily living. Abuse/DV Screen: The patient / caregiver reports he/she is:. Nutritional screening: No deficits noted. Advance Directives: Currently, there is no health care proxy. There is no active DNR order. There is no living will. There is no Power of Fpga Engineer. Advance directive information has not previously been placed in an [facility] medical record. home support is adequate. Assessment: 17:00 Adult Sepsis Screening: The patient does not have new or worsening altered mentation. kc3 Patient's respiratory rate is less than 22. Systolic blood pressure is greater than 100. Patient has a qSOFA score of 0- Negative Sepsis Screen. 17:49 General: Appears in no apparent distress, alert and cooperative. 2" area of redness jmk swelling and firmness to right forearm. 3" area of swelling with redness and increased warmth to left ac space. Pulses intact. Multiple tract mercedes over both forearms. openly admits to intravenous drug use.. 18:28 General: Appears resting with eyes closed resp easy and regular. clindamycin infusing jmk without event. 19:28 General: Appears in no apparent distress, assumed care of pt at this time, rr even and af2 unlabored. offers no complaints. . 20:17 General: Appears in no apparent distress, Behavior is cooperative. Pain: Location: mcp right arm and left arm Pain currently is 3 out of 10 on a pain scale. Neurological: No deficits noted. Respiratory: Airway is patent Respiratory effort is even, unlabored. Derm: Skin is pink, warm & dry. Abscess located on right arm and left arm is hot to touch, is red, is raised. Musculoskeletal: Circulation, motion, and sensation intact. Social Work Consult: 20:19 LWBS/AMA AMA: Patient is refusing further stabilizing treatment at [facility], although cl offered treatment regardless of method of payment or ability to pay. Patient is aware that this action is being undertaken against the advice of the medical staff at [facility]. Pt. has capacity to understand the potential consequences of this choice. pt did notify ED staff. Pt left before being seen by PSA. Vital Signs: 14:48 BP 148 / 89; Pulse 93; Resp 18 S; Temp 97.8(O); Pulse Ox 98% on R/A; Weight 70.76 kg dd6 (R); Height 5 ft. 4 in. (162.56 cm) (R); 20:15 BP 122 / 80; Pulse 86; Resp 18; Temp 97.4(O); Pulse Ox 100% on R/A; Pain 3/10; mcp 14:48 Body Mass Index 26.78 (70.76 kg, 162.56 cm) dd6 Vitals: 14:48 Log In Time: October 06, 2016 at 14:46. dd6 ED Course: 14:48 Patient visited by Carson Woodson PCA. dd6 14:48 Violetta Mancini is Private Physician. dd6 14:48 Patient moved to Waiting dd6 14:49 Patient moved to Pre RCE dd6 15:01 Triage Initiated srm 16:02 Patient visited by Diana Altamirano PCA. jb5 16:02 Patient moved to Triage 3 jb5 16:33 Patient visited by Diana Altamirano PCA. jb5 16:40 Brandt Javier RPA-C is PHCP. ck7 16:40 Caitlin García MD is Attending Physician. ck7 16:40 Patient visited by Brandt Javier RPA-C. ck7 16:52 Patient moved to I1 / M1 dy 17:09 [facility] Payment Agreement was scanned into hoccer and attached to record. gjb 17:10 Patient visited by Brandt Javier RPA-C. ck7 17:44 CBC with Diff Sent. nb2 17:44 MED Profile Sent. nb2 17:44 -Blood Culture Sent. nb2 17:44 Lactic Acid (Saez tube on ice) Sent. nb2 17:44 ESR Sent. nb2 17:44 CRP Sent. nb2 17:44 BLOOD CULTURES Sent. nb2 17:44 Inserted saline lock: 22 gauge in right and blood collected. The patient tolerated the dy procedure well. upper arm. 17:49 The patient / caregiver is instructed regarding the plan of care and ED course. jmk 17:49 Missed attempts: 20 gauge in right antecubital area. jmk 18:12 Patient visited by Brandt Javier RPA-C. ck7 18:12 EXTREMITY NON VASCUL LIMITED Returned. EDMS 18:28 Patient visited by Yury Hammonds,COLEMAN. jmk 19:02 Patient visited by Brandt Javier RPA-C. ck7 19:28 Patient visited by Berta Mace RN. af2 20:01 Patient visited by Brandt Javier RPA-C. ck7 20:02 Violetta Mancini is Referral Physician. ck7 20:18 Discontinued lock intact, bleeding controlled, pressure dressing applied, No mcp redness/swelling at site. No procedures done that require assistance. 10/07 09:34 Refusal of Services was scanned into hoccer and attached to record. 09:34 T-Sheet-- Draft Copy was scanned into hoccer and attached to record. gb Administered Medications: 10/06 17:46 Drug: NS 0.9% 1000 ml Route: IV; Rate: bolus; Site: right upper arm; rivka 17:46 Drug: Clindamycin 900 mg Route: IVPB; Infused Over: 30 mins; Site: left upper arm; rivka Attachments: 10/07 09:34 Refusal of Services Order Results: Lab Order: CBC with Diff; SPEC'M 10/06/16 17:40 Test: WHITE BLOOD COUNT; Value: 6.8; Range: 4.0-10.0; Units: K/mm3; Status: F Test: RED BLOOD COUNT; Value: 5.18; Range: 4.00-5.40; Units: M/mm3; Status: F Test: HEMOGLOBIN; Value: 14.8; Range: 12.0-16.0; Units: g/dl; Status: F Test: HEMATOCRIT; Value: 45.2; Range: 36.0-47.0; Units: %; Status: F Test: MEAN CORPUSCULAR VOLUME; Value: 87.3; Range: 80.0-96.0; Units: fl; Status: F Test: MEAN CORPUSCULAR HEMOGLOBIN; Value: 28.6; Range: 27.0-33.0; Units: pg; Status: F Test: MEAN CORPUSCULAR HGB CONC; Value: 32.7; Range: 32.0-36.5; Units: g/dl; Status: F Test: RED CELL DISTRIBUTION WIDTH; Value: 13.7; Range: 11.5-14.5; Units: %; Status: F Test: PLATELET COUNT, AUTOMATED; Value: 333; Range: 150-450; Units: k/mm3; Status: F Test: NEUTROPHILS %; Value: 52.6; Range: 36.0-66.0; Units: %; Status: F Test: LYMPH %; Value: 35.0; Range: 24.0-44.0; Units: %; Status: F Test: MONO %; Value: 5.9; Range: 0.0-5.0; Abnormal: Above high normal; Units: %; Status: F Test: EOS %; Value: 2.8; Range: 0.0-3.0; Units: %; Status: F Test: BASO %; Value: 0.7; Range: 0.0-1.0; Units: %; Status: F Test: LARGE UNSTAINED CELL %; Value: 3.0; Range: 0.0-4.0; Units: %; Status: F Test: NEUTROPHILS #; Value: 3.6; Range: 1.8-7.7; Units: K/mm3; Status: F Test: LYMPH #; Value: 2.4; Range: 1.5-6.5; Units: K/mm3; Status: F Test: MONO #; Value: 0.4; Range: 0.0-0.8; Units: K/mm3; Status: F Test: EOS #; Value: 0.2; Range: 0.0-0.50; Units: K/mm3; Status: F Test: BASO #; Value: 0.0; Range: 0.0-0.2; Units: K/mm3; Status: F Test: LARGE UNSTAINED CELL #; Value: 0.2; Range: 0.0-0.4; Units: K/mm3; Status: F Lab Order: [facility] Profile; SPEC'M 10/06/16 17:40 Test: GLUCOSE, FASTING; Value: 94; Range: 70-105; Units: MG/DL; Status: F Test: BLOOD UREA NITROGEN; Value: 12; Range: 7-18; Units: MG/DL; Status: F Test: CREATININE FOR GFR; Value: 0.65; Range: 0.55-1.02; Units: MG/DL; Status: F Test: GLOMERULAR FILTRATION RATE; Value: > 60.0; Range: >60; Status: F Test: SODIUM LEVEL; Value: 139; Range: 136-145; Units: MEQ/L; Status: F Test: POTASSIUM SERUM; Value: 4.2; Range: 3.5-5.1; Units: MEQ/L; Status: F Test: CHLORIDE LEVEL; Value: 102; Range: 98-107; Units: MEQ/L; Status: F Test: CARBON DIOXIDE LEVEL; Value: 32; Range: 21-32; Units: MEQ/L; Status: F Test: ANION GAP; Value: 5; Range: 8-16; Abnormal: Below low normal; Units: MEQ/L; Status: F Test: CALCIUM LEVEL; Value: 9.5; Range: 8.5-10.1; Units: MG/DL; Status: F Test Note: ; Units are mL/min/1.73 m2 Chronic Kidney Disease Staging per NKF: Stage I & II GFR >=60 Normal to Mildly Decreased Stage III GFR 30-59 Moderately Decreased Stage IV GFR 15-29 Severely Decreased Stage V GFR <15 Very Little GFR Left ESRD GFR <15 on ENVIRONMENTAL COMPLIANCE TECHNICIAN Lab Order: -Blood Culture; SPEC'M 10/06/16 17:40 Test: BLOOD CULTURE; Value: No growth after 48 hours . All specimens observed; Status: F Test: BLOOD CULTURE; Value: for 5 days. Results final at that time.; Status: F Test: BLOOD CULTURE; Status: F Test: BLOOD CULTURE; Value: No growth after 24 hours . All specimens observed; Status: F Test: BLOOD CULTURE; Value: for 5 days. Results final at that time.; Status: F Test: BLOOD CULTURE; Value: No Growth after 72 hours. All specimens observed; Status: F Test: BLOOD CULTURE; Value: for 7 days. Results final at that time.; Status: F Lab Order: Lactic Acid (Saez tube on ice); SPEC'M 10/06/16 17:40 Test: LACTIC ACID LEVEL, LACTATE; Value: 2.0; Range: 0.4-2.0; Units: MMOL/L; Status: F Lab Order: ESR; SPEC'M 10/06/16 17:40 Test: ERYTHROCYTE SEDIMENTATION RATE; Value: 8; Range: 0-20; Units: mm/hr; Status: F Lab Order: CRP; SPEC'M 10/06/16 17:40 Test: C REACTIVE PROTEIN QUANTITATIV; Value: 2.46; Range: 0.00-0.30; Abnormal: Above high normal; Units: MG/DL; Status: F Lab Order: BLOOD CULTURES; SPEC'M 10/06/16 17:40 Test: BLOOD CULTURE; Value: No growth after 48 hours . All specimens observed; Status: F Test: BLOOD CULTURE; Value: for 5 days. Results final at that time.; Status: F Test: BLOOD CULTURE; Status: F Test: BLOOD CULTURE; Value: No growth after 24 hours . All specimens observed; Status: F Test: BLOOD CULTURE; Value: for 5 days. Results final at that time.; Status: F Test: BLOOD CULTURE; Value: No Growth after 72 hours. All specimens observed; Status: F Test: BLOOD CULTURE; Value: for 7 days. Results final at that time.; Status: F Radiology Order: EXTREMITY NON VASCUL LIMITED Test: EXTREMITY NON VASCUL LIMITED REASON FOR EXAMINATION: R/O LEFT AC ABSCESS, R FOREARM;Deformity/Swelling; Clinical: Bilateral upper extremity swelling evaluate for abscess.; ; Technique: Real time saez scale and color evaluation using linear high frequency; transducer.; ; Findings:; Ultrasound examination of the bilateral upper extremities performed and; demonstrates significant diffuse bilateral subcutaneous edema.; ; Right upper extremity at the level of the distal forearm in the site of maximal; erythema demonstrates complex insinuating fluid without discrete drainable; collection.; ; Left upper extremity in the region of the antecubital fossa demonstrates complex; insinuating fluid with small discrete collection measuring 6 x 9 x 13 mm.; ; Impression:; Diffuse bilateral subcutaneous edema with insinuating complex fluid on the right; forearm and small complex collection in the left antecubital fossa.; ; ; Signed by; Rufino Leiva MD 10/06/2016 05:23 P; Outcome: 10/06 20:02 Patient left against medical advice. ck7 20:18 Discharge Assessment: patient administered narcotics - no. The following High Risk mcp Discharge criteria are identified: None. Discharged to home ambulatory. Condition: stable. Discharge instructions given to patient, Instructed on discharge instructions, follow up and referral plans. medication usage, wound care, Demonstrated understanding of instructions, medications, Pt was receptive of discharge instructions/ teaching. Prescriptions given X 1. No special radiology studies were completed. Property sent home with patient. 20:19 Patient left the ED. [facility] Signatures: Dispatcher MedHost EDMS Yury Hammonds,RN RN Radha Real, RN RN Xin Hernandez, RN RN lorenzo Saldana, Qasim, PSA PSA cl Pauly Millard, Reg Reg gb Vicente, Gabriel, RN RN Diana Min, GRAINING OPERATOR GRAINING OPERATOR jb5 Carson Woodson, GRAINING OPERATOR GRAINING OPERATOR dd6 Brandt Javier, RPA-C RPA-Cck7 Berta MaceRN RN af2 Angélica FriedRN RN kc3 Emilie Martinez Nicole nb2 MTDD
--- NOTE | 2016-10-10 20:36 | EDDOCDS ---
Physician Documentation [facility] Name: Marla Washington Age: 31 yrs Sex: Female : 1985 Arrival Date: 10/06/2016 Time: 14:47 Bed I1 / M1 Private MD: Ada Mancini S Disposition: 10/06/16 20:02 Patient has left against medical advice. Impression: Cellulitis of left upper limb, Cellulitis of right upper limb. - Patients states they are going to Home/Self Care. - Condition is Stable. - Discharge Instructions: Cellulitis. - Prescriptions for Clindamycin HCl 300 mg Oral Capsule - take 1 capsule by ORAL route every 6 hours; 40 capsule. Medication Reconciliation, Local Pharmacy Hours form. Follow up: Emergency Department; When: As needed; Reason: Recheck today's complaints, Worsening of conditions, Continuance of care. Follow up: Ada Mancini; When: 2 - 3 days; Reason: Recheck today's complaints, Continuance of care. - Problem is new. - Symptoms are unchanged. - Notes: YOU WERE OFFERED ADMISSION TONIGHT AND HAVE DECLINED, PLEASE RETURN TO THE ER TOMORROW MORNING FOR RE-EVALUATION, YOU ARE BEING GIVEN A SCRIPT FOR CLINDAMYCIN IN CASE YOU ARE UNABLE TO COME BACK TOMORROW, IT IS STRONGLY ADVISED THAT YOU COME BACK TO HAVE THIS MONITORED Historical: - Allergies: no known allergies; - Home Meds: 1. Methadone 35mg Oral once daily (Last dose: 10/06/2016) 2. albuterol sulfate 90 mcg/actuation Inhl HFAA every 4-6 hours prn - PMHx: Bipolar disorder; Hepatitis C; Kidney stones; polysubstance abuse; Asthma; SVT; - PSHx: HERNIA REPAIR; (July 2011); Cardiac Ablation; Sinus Surgery; KIDNEY STENTS; Ovarian Cystectomy- Left; Laparoscopy; - Social history: Smoking status: Patient uses tobacco products, current every day smoker. No barriers to communication noted, The patient speaks fluent Thai, Speaks appropriately for age. - Family history: Not pertinent. - : The pt / caregiver states he / she is not on anticoagulants. Home medication list is obtained from the patient. - Exposure Risk Screening:: None identified. 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 4 in. (162.56 cm) (R); 20:15 BP 122 / 80; Pulse 86; Resp 18; Temp 97.4(O); Pulse Ox 100% on R/A; Pain 3/10; mcp 14:48 Body Mass Index 26.78 (70.76 kg, 162.56 cm) dd6 MDM: 16:46 -Blood Culture (Adults Only), peripheral from different site, or from device/port/PICC ck7 etc. if present ordered. 16:46 IV Saline Lock ordered. ck7 16:46 NS 0.9% 1000 ml IV at bolus once ordered. ck7 16:46 Clindamycin 900 mg IVPB once over 30 mins; dilute in 50mL of NS or D5W ordered. ck7 16:46 CBC with Diff Ordered. EDMS 16:46 MED Profile Ordered. EDMS 16:47 -Blood Culture Ordered. EDMS 16:47 Lactic Acid (Saez tube on ice) Ordered. EDMS 16:47 ESR Ordered. EDMS 16:47 CRP Ordered. EDMS 16:53 EXTREMITY NON VASCUL LIMITED Ordered. EDMS 17:02 -Blood Culture (Adults Only), peripheral from different site, or from device/port/PICC jb5 etc. if present complete. 17:04 BLOOD CULTURES Ordered. EDMS 17:09 [facility] Payment Agreement was scanned into [employer] and attached to record. gjb 17:09 Financial registration complete. gjb 18:12 CBC with Diff Reviewed. ck7 18:12 EXTREMITY NON VASCUL LIMITED Reviewed. ck7 20:10 CBC with Diff Reviewed. ck7 20:10 MED Profile Reviewed. ck7 20:10 CRP Reviewed. ck7 20:10 Lactic Acid (Saez tube on ice) Reviewed. ck7 20:10 ESR Reviewed. ck7 10/07 09:34 Refusal of Services was scanned into [employer] and attached to record. gb 09:34 T-Sheet-- Draft Copy was scanned into [employer] and attached to record. gb Administered Medications: 10/06 17:46 Drug: NS 0.9% 1000 ml Route: IV; Rate: bolus; Site: right upper arm; arelis 17:46 Drug: Clindamycin 900 mg Route: IVPB; Infused Over: 30 mins; Site: left upper arm; arelis Addendum: 10/10/2016 20:35 Radiology Callback: Radiology results faxed to primary care physician/provider. adafranklyn britt faxed us report. pt left ama. will fax to pcp in attempt for pcp to fu mlg. Signatures: Dispatcher [employer] EDMS Gladys Blue MD MD ml Knapp, Jean,RN RN Radha Real RN RN Xin Hernandez, RN RN mcp Pauly Millard, Reg Reg gb Diana Altamirano, CASUALTY UNDERWRITER CASUALTY UNDERWRITER jb5 Brandt Javier, RPA-C RPA-Cck7 Emilie Martinez The chart was reviewed and I authenticate all verbal orders and agree with the evaluation and treatment provided.Corrections: (The following items were deleted from the chart) 10/06 16:53 16:48 DUPLEX Ext. UPPER UNILATE+US ordered. EDMI EDMI Attachments: 17:09 [facility] Payment Agreement gjb 09:34 T-Sheet-- Draft Copy gb MTDD
--- NOTE | 2016-10-10 20:37 | EDDOCDS ---
Nurse's Notes [facility] Name: Marla Washington Age: 31 yrs Sex: Female : 1985 Arrival Date: 10/06/2016 Time: 14:47 Bed I1 / M1 Private MD: Violteta Mancini S Diagnosis: Cellulitis of left upper limb;Cellulitis of right upper limb Presentation: 10/06 15:00 Presenting complaint: Patient states: redness and swelling to LAC and right forearm. srm symptoms for 2 days. Adult Sepsis Screening: The patient does not have new or worsening altered mentation. Patient's respiratory rate is less than 22. Systolic blood pressure is greater than 100. Patient has a qSOFA score of 0- Negative Sepsis Screen. Suicide/Homicide risk assessment- the patient denies having any suicidal and/or homicidal ideations and does not present with any other emotional, behavioral or mental health complaints. 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 Transition of care: patient was not received from another setting of care. 15:00 Acuity: KRISH Level 3 srm 15:00 Method Of Arrival: Walkin/Carried/Asstd srm Triage Assessment: 15:03 General: Appears in no apparent distress, Behavior is appropriate for age, cooperative. srm Pain: Pain currently is 7 out of 10 on a pain scale. At worst was 10 out of 10 on a pain scale. HIV screening NA for this visit Offered previously. 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 Methadone 35mg Oral once daily (Last dose: 10/06/2016) 2. albuterol sulfate 90 mcg/actuation Inhl HFAA every 4-6 hours prn - PMHx: Bipolar disorder; Hepatitis C; Kidney stones; polysubstance abuse; Asthma; SVT; - PSHx: HERNIA REPAIR; (July 2011); Cardiac Ablation; Sinus Surgery; KIDNEY STENTS; Ovarian Cystectomy- Left; Laparoscopy; - Social history: Smoking status: Patient uses tobacco products, current every day smoker. No barriers to communication noted, The patient speaks fluent Ivorian, Speaks appropriately for age. - Family history: Not pertinent. - : The pt / caregiver states he / she is not on anticoagulants. Home medication list is obtained from the patient. - Exposure Risk Screening:: None identified. Screenin:49 Screening information is obtained from the patient. Fall risk: No risks identified. jmk Assistance ADL's: requires no assistance with activities of daily living. Abuse/DV Screen: The patient / caregiver reports he/she is:. Nutritional screening: No deficits noted. Advance Directives: Currently, there is no health care proxy. There is no active DNR order. There is no living will. There is no Power of Decorator [employer]. Advance directive information has not previously been placed in an [facility] medical record. home support is adequate. Assessment: 17:00 Adult Sepsis Screening: The patient does not have new or worsening altered mentation. kc3 Patient's respiratory rate is less than 22. Systolic blood pressure is greater than 100. Patient has a qSOFA score of 0- Negative Sepsis Screen. 17:49 General: Appears in no apparent distress, alert and cooperative. 2" area of redness jmk swelling and firmness to right forearm. 3" area of swelling with redness and increased warmth to left ac space. Pulses intact. Multiple tract mercedes over both forearms. openly admits to intravenous drug use.. 18:28 General: Appears resting with eyes closed resp easy and regular. clindamycin infusing jmk without event. 19:28 General: Appears in no apparent distress, assumed care of pt at this time, rr even and af2 unlabored. offers no complaints. . 20:17 General: Appears in no apparent distress, Behavior is cooperative. Pain: Location: mcp right arm and left arm Pain currently is 3 out of 10 on a pain scale. Neurological: No deficits noted. Respiratory: Airway is patent Respiratory effort is even, unlabored. Derm: Skin is pink, warm & dry. Abscess located on right arm and left arm is hot to touch, is red, is raised. Musculoskeletal: Circulation, motion, and sensation intact. Social Work Consult: 20:19 LWBS/AMA AMA: Patient is refusing further stabilizing treatment at [facility], although cl offered treatment regardless of method of payment or ability to pay. Patient is aware that this action is being undertaken against the advice of the medical staff at [facility]. Pt. has capacity to understand the potential consequences of this choice. pt did notify ED staff. Pt left before being seen by PSA. Vital Signs: 14:48 BP 148 / 89; Pulse 93; Resp 18 S; Temp 97.8(O); Pulse Ox 98% on R/A; Weight 70.76 kg dd6 (R); Height 5 ft. 4 in. (162.56 cm) (R); 20:15 BP 122 / 80; Pulse 86; Resp 18; Temp 97.4(O); Pulse Ox 100% on R/A; Pain 3/10; mcp 14:48 Body Mass Index 26.78 (70.76 kg, 162.56 cm) dd6 Vitals: 14:48 Log In Time: October 06, 2016 at 14:46. dd6 ED Course: 14:48 Patient visited by Carson Woodson PCA. dd6 14:48 Violetta Mancini is Private Physician. dd6 14:48 Patient moved to Waiting dd6 14:49 Patient moved to Pre RCE dd6 15:01 Triage Initiated srm 16:02 Patient visited by Diana Altamirano PCA. jb5 16:02 Patient moved to Triage 3 jb5 16:33 Patient visited by Diana Altamirano PCA. jb5 16:40 Brandt Javier RPA-C is PHCP. ck7 16:40 Caitlin García MD is Attending Physician. ck7 16:40 Patient visited by Brandt Javier RPA-C. ck7 16:52 Patient moved to I1 / M1 dy 17:09 [facility] Payment Agreement was scanned into [employer] and attached to record. gjb 17:10 Patient visited by Brandt Javier RPA-C. ck7 17:44 CBC with Diff Sent. nb2 17:44 MED Profile Sent. nb2 17:44 -Blood Culture Sent. nb2 17:44 Lactic Acid (Saez tube on ice) Sent. nb2 17:44 ESR Sent. nb2 17:44 CRP Sent. nb2 17:44 BLOOD CULTURES Sent. nb2 17:44 Inserted saline lock: 22 gauge in right and blood collected. The patient tolerated the dy procedure well. upper arm. 17:49 The patient / caregiver is instructed regarding the plan of care and ED course. jmk 17:49 Missed attempts: 20 gauge in right antecubital area. jmk 18:12 Patient visited by Brandt Javier RPA-C. ck7 18:12 EXTREMITY NON VASCUL LIMITED Returned. EDMS 18:28 Patient visited by Yury Hammonds,COLEMAN. jmk 19:02 Patient visited by Brandt Javier RPA-C. ck7 19:28 Patient visited by Berta Mace RN. af2 20:01 Patient visited by Brandt Javier RPA-C. ck7 20:02 Violetta Mancini is Referral Physician. ck7 20:18 Discontinued lock intact, bleeding controlled, pressure dressing applied, No mcp redness/swelling at site. No procedures done that require assistance. 10/07 09:34 Refusal of Services was scanned into [employer] and attached to record. 09:34 T-Sheet-- Draft Copy was scanned into [employer] and attached to record. gb Administered Medications: 10/06 17:46 Drug: NS 0.9% 1000 ml Route: IV; Rate: bolus; Site: right upper arm; rivka 17:46 Drug: Clindamycin 900 mg Route: IVPB; Infused Over: 30 mins; Site: left upper arm; rivka Attachments: 10/07 09:34 Refusal of Services Order Results: Lab Order: CBC with Diff; SPEC'M 10/06/16 17:40 Test: WHITE BLOOD COUNT; Value: 6.8; Range: 4.0-10.0; Units: K/mm3; Status: F Test: RED BLOOD COUNT; Value: 5.18; Range: 4.00-5.40; Units: M/mm3; Status: F Test: HEMOGLOBIN; Value: 14.8; Range: 12.0-16.0; Units: g/dl; Status: F Test: HEMATOCRIT; Value: 45.2; Range: 36.0-47.0; Units: %; Status: F Test: MEAN CORPUSCULAR VOLUME; Value: 87.3; Range: 80.0-96.0; Units: fl; Status: F Test: MEAN CORPUSCULAR HEMOGLOBIN; Value: 28.6; Range: 27.0-33.0; Units: pg; Status: F Test: MEAN CORPUSCULAR HGB CONC; Value: 32.7; Range: 32.0-36.5; Units: g/dl; Status: F Test: RED CELL DISTRIBUTION WIDTH; Value: 13.7; Range: 11.5-14.5; Units: %; Status: F Test: PLATELET COUNT, AUTOMATED; Value: 333; Range: 150-450; Units: k/mm3; Status: F Test: NEUTROPHILS %; Value: 52.6; Range: 36.0-66.0; Units: %; Status: F Test: LYMPH %; Value: 35.0; Range: 24.0-44.0; Units: %; Status: F Test: MONO %; Value: 5.9; Range: 0.0-5.0; Abnormal: Above high normal; Units: %; Status: F Test: EOS %; Value: 2.8; Range: 0.0-3.0; Units: %; Status: F Test: BASO %; Value: 0.7; Range: 0.0-1.0; Units: %; Status: F Test: LARGE UNSTAINED CELL %; Value: 3.0; Range: 0.0-4.0; Units: %; Status: F Test: NEUTROPHILS #; Value: 3.6; Range: 1.8-7.7; Units: K/mm3; Status: F Test: LYMPH #; Value: 2.4; Range: 1.5-6.5; Units: K/mm3; Status: F Test: MONO #; Value: 0.4; Range: 0.0-0.8; Units: K/mm3; Status: F Test: EOS #; Value: 0.2; Range: 0.0-0.50; Units: K/mm3; Status: F Test: BASO #; Value: 0.0; Range: 0.0-0.2; Units: K/mm3; Status: F Test: LARGE UNSTAINED CELL #; Value: 0.2; Range: 0.0-0.4; Units: K/mm3; Status: F Lab Order: [facility] Profile; SPEC'M 10/06/16 17:40 Test: GLUCOSE, FASTING; Value: 94; Range: 70-105; Units: MG/DL; Status: F Test: BLOOD UREA NITROGEN; Value: 12; Range: 7-18; Units: MG/DL; Status: F Test: CREATININE FOR GFR; Value: 0.65; Range: 0.55-1.02; Units: MG/DL; Status: F Test: GLOMERULAR FILTRATION RATE; Value: > 60.0; Range: >60; Status: F Test: SODIUM LEVEL; Value: 139; Range: 136-145; Units: MEQ/L; Status: F Test: POTASSIUM SERUM; Value: 4.2; Range: 3.5-5.1; Units: MEQ/L; Status: F Test: CHLORIDE LEVEL; Value: 102; Range: 98-107; Units: MEQ/L; Status: F Test: CARBON DIOXIDE LEVEL; Value: 32; Range: 21-32; Units: MEQ/L; Status: F Test: ANION GAP; Value: 5; Range: 8-16; Abnormal: Below low normal; Units: MEQ/L; Status: F Test: CALCIUM LEVEL; Value: 9.5; Range: 8.5-10.1; Units: MG/DL; Status: F Test Note: ; Units are mL/min/1.73 m2 Chronic Kidney Disease Staging per NKF: Stage I & II GFR >=60 Normal to Mildly Decreased Stage III GFR 30-59 Moderately Decreased Stage IV GFR 15-29 Severely Decreased Stage V GFR <15 Very Little GFR Left ESRD GFR <15 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 All specimens observed; Status: F Test: BLOOD CULTURE; Value: for 5 days. Results final at that time.; Status: F Test: BLOOD CULTURE; Status: F Test: BLOOD CULTURE; Value: No growth after 24 hours . All specimens observed; Status: F Test: BLOOD CULTURE; Value: for 5 days. Results final at that time.; Status: F Test: BLOOD CULTURE; Value: No Growth after 72 hours. All specimens observed; Status: F Test: BLOOD CULTURE; Value: for 7 days. Results final at that time.; Status: F Lab Order: Lactic Acid (Saez tube on ice); SPEC'M 10/06/16 17:40 Test: LACTIC ACID LEVEL, LACTATE; Value: 2.0; Range: 0.4-2.0; Units: MMOL/L; Status: F Lab Order: ESR; SPEC'M 10/06/16 17:40 Test: ERYTHROCYTE SEDIMENTATION RATE; Value: 8; Range: 0-20; Units: mm/hr; Status: F Lab Order: CRP; SPEC'M 10/06/16 17:40 Test: C REACTIVE PROTEIN QUANTITATIV; Value: 2.46; Range: 0.00-0.30; Abnormal: Above high normal; Units: MG/DL; Status: F Lab Order: BLOOD CULTURES; SPEC'M 10/06/16 17:40 Test: BLOOD CULTURE; Value: No growth after 48 hours . All specimens observed; Status: F Test: BLOOD CULTURE; Value: for 5 days. Results final at that time.; Status: F Test: BLOOD CULTURE; Status: F Test: BLOOD CULTURE; Value: No growth after 24 hours . All specimens observed; Status: F Test: BLOOD CULTURE; Value: for 5 days. Results final at that time.; Status: F Test: BLOOD CULTURE; Value: No Growth after 72 hours. All specimens observed; Status: F Test: BLOOD CULTURE; Value: for 7 days. Results final at that time.; Status: F Radiology Order: EXTREMITY NON VASCUL LIMITED Test: EXTREMITY NON VASCUL LIMITED REASON FOR EXAMINATION: R/O LEFT AC ABSCESS, R FOREARM;Deformity/Swelling; Clinical: Bilateral upper extremity swelling evaluate for abscess.; ; Technique: Real time saez scale and color evaluation using linear high frequency; transducer.; ; Findings:; Ultrasound examination of the bilateral upper extremities performed and; demonstrates significant diffuse bilateral subcutaneous edema.; ; Right upper extremity at the level of the distal forearm in the site of maximal; erythema demonstrates complex insinuating fluid without discrete drainable; collection.; ; Left upper extremity in the region of the antecubital fossa demonstrates complex; insinuating fluid with small discrete collection measuring 6 x 9 x 13 mm.; ; Impression:; Diffuse bilateral subcutaneous edema with insinuating complex fluid on the right; forearm and small complex collection in the left antecubital fossa.; ; ; Signed by; Rufino Leiva MD 10/06/2016 05:23 P; Outcome: 10/06 20:02 Patient left against medical advice. ck7 20:18 Discharge Assessment: patient administered narcotics - no. The following High Risk mcp Discharge criteria are identified: None. Discharged to home ambulatory. Condition: stable. Discharge instructions given to patient, Instructed on discharge instructions, follow up and referral plans. medication usage, wound care, Demonstrated understanding of instructions, medications, Pt was receptive of discharge instructions/ teaching. Prescriptions given X 1. No special radiology studies were completed. Property sent home with patient. 20:19 Patient left the ED. [facility] Signatures: Dispatcher [employer] EDMS Yury Hammonds,RN RN Radha Real, RN RN Xin Hernandez, RN RN lorenzo Saldana, Qasim, PSA PSA cl Pauly Millard, Reg Reg gb Vicente, Gabriel, RN RN Diana Min, FORMULA CHECKER FORMULA CHECKER jb5 Carson Woodson, FORMULA CHECKER FORMULA CHECKER dd6 Brandt Javier, RPA-C RPA-Cck7 Berta MaceRN RN af2 Angélica FriedRN RN caitlyn3 Emilie Martinez Nicole nb2 Chart Complete MTDToby
--- NOTE | 2016-10-10 20:37 | EDDOCDS ---
Physician Documentation [facility] Name: Marla Washington Age: 31 yrs Sex: Female : 1985 Arrival Date: 10/06/2016 Time: 14:47 Bed I1 / M1 Private MD: Ada Mancini S Disposition: 10/06/16 20:02 Patient has left against medical advice. Impression: Cellulitis of left upper limb, Cellulitis of right upper limb. - Patients states they are going to Home/Self Care. - Condition is Stable. - Discharge Instructions: Cellulitis. - Prescriptions for Clindamycin HCl 300 mg Oral Capsule - take 1 capsule by ORAL route every 6 hours; 40 capsule. Medication Reconciliation, Local Pharmacy Hours form. Follow up: Emergency Department; When: As needed; Reason: Recheck today's complaints, Worsening of conditions, Continuance of care. Follow up: Ada Mancini; When: 2 - 3 days; Reason: Recheck today's complaints, Continuance of care. - Problem is new. - Symptoms are unchanged. - Notes: YOU WERE OFFERED ADMISSION TONIGHT AND HAVE DECLINED, PLEASE RETURN TO THE ER TOMORROW MORNING FOR RE-EVALUATION, YOU ARE BEING GIVEN A SCRIPT FOR CLINDAMYCIN IN CASE YOU ARE UNABLE TO COME BACK TOMORROW, IT IS STRONGLY ADVISED THAT YOU COME BACK TO HAVE THIS MONITORED Historical: - Allergies: no known allergies; - Home Meds: 1. Methadone 35mg Oral once daily (Last dose: 10/06/2016) 2. albuterol sulfate 90 mcg/actuation Inhl HFAA every 4-6 hours prn - PMHx: Bipolar disorder; Hepatitis C; Kidney stones; polysubstance abuse; Asthma; SVT; - PSHx: HERNIA REPAIR; (July 2011); Cardiac Ablation; Sinus Surgery; KIDNEY STENTS; Ovarian Cystectomy- Left; Laparoscopy; - Social history: Smoking status: Patient uses tobacco products, current every day smoker. No barriers to communication noted, The patient speaks fluent Faroese, Speaks appropriately for age. - Family history: Not pertinent. - : The pt / caregiver states he / she is not on anticoagulants. Home medication list is obtained from the patient. - Exposure Risk Screening:: None identified. 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 4 in. (162.56 cm) (R); 20:15 BP 122 / 80; Pulse 86; Resp 18; Temp 97.4(O); Pulse Ox 100% on R/A; Pain 3/10; mcp 14:48 Body Mass Index 26.78 (70.76 kg, 162.56 cm) dd6 MDM: 16:46 -Blood Culture (Adults Only), peripheral from different site, or from device/port/PICC ck7 etc. if present ordered. 16:46 IV Saline Lock ordered. ck7 16:46 NS 0.9% 1000 ml IV at bolus once ordered. ck7 16:46 Clindamycin 900 mg IVPB once over 30 mins; dilute in 50mL of NS or D5W ordered. ck7 16:46 CBC with Diff Ordered. EDMS 16:46 MED Profile Ordered. EDMS 16:47 -Blood Culture Ordered. EDMS 16:47 Lactic Acid (Saez tube on ice) Ordered. EDMS 16:47 ESR Ordered. EDMS 16:47 CRP Ordered. EDMS 16:53 EXTREMITY NON VASCUL LIMITED Ordered. EDMS 17:02 -Blood Culture (Adults Only), peripheral from different site, or from device/port/PICC jb5 etc. if present complete. 17:04 BLOOD CULTURES Ordered. EDMS 17:09 [facility] Payment Agreement was scanned into [employer] and attached to record. gjb 17:09 Financial registration complete. gjb 18:12 CBC with Diff Reviewed. ck7 18:12 EXTREMITY NON VASCUL LIMITED Reviewed. ck7 20:10 CBC with Diff Reviewed. ck7 20:10 MED Profile Reviewed. ck7 20:10 CRP Reviewed. ck7 20:10 Lactic Acid (Saez tube on ice) Reviewed. ck7 20:10 ESR Reviewed. ck7 10/07 09:34 Refusal of Services was scanned into [employer] and attached to record. gb 09:34 T-Sheet-- Draft Copy was scanned into [employer] and attached to record. gb Administered Medications: 10/06 17:46 Drug: NS 0.9% 1000 ml Route: IV; Rate: bolus; Site: right upper arm; arelis 17:46 Drug: Clindamycin 900 mg Route: IVPB; Infused Over: 30 mins; Site: left upper arm; arelis Addendum: 10/10/2016 20:35 Radiology Callback: Radiology results faxed to primary care physician/provider. adafranklyn britt faxed us report. pt left ama. will fax to pcp in attempt for pcp to fu mlg. Signatures: Dispatcher [employer] EDMS Gladys Blue MD MD ml Knapp, Jean,RN RN Radha Real RN RN Xin Hernandez, RN RN mcp Pauly Millard, Reg Reg gb Diana Altamirano, KOBI ROTARY DRILLER HELPER jb5 Brandt Javier, RPA-C RPA-Cck7 Emilie Martinez The chart was reviewed and I authenticate all verbal orders and agree with the evaluation and treatment provided.Corrections: (The following items were deleted from the chart) 10/06 16:53 16:48 DUPLEX Ext. UPPER UNILATE+US ordered. EDWV EDWV Attachments: 17:09 [facility] Payment Agreement gjb 09:34 T-Sheet-- Draft Copy gb Chart Complete MTDD
--- NOTE | 2016-10-10 20:37 | EDDOCDS ---
Physician Documentation [facility] Name: Marla Washington Age: 31 yrs Sex: Female : 1985 Arrival Date: 10/06/2016 Time: 14:47 Bed I1 / M1 Private MD: Ada Mancini S Disposition: 10/06/16 20:02 Patient has left against medical advice. Impression: Cellulitis of left upper limb, Cellulitis of right upper limb. - Patients states they are going to Home/Self Care. - Condition is Stable. - Discharge Instructions: Cellulitis. - Prescriptions for Clindamycin HCl 300 mg Oral Capsule - take 1 capsule by ORAL route every 6 hours; 40 capsule. Medication Reconciliation, Local Pharmacy Hours form. Follow up: Emergency Department; When: As needed; Reason: Recheck today's complaints, Worsening of conditions, Continuance of care. Follow up: Ada Mancini; When: 2 - 3 days; Reason: Recheck today's complaints, Continuance of care. - Problem is new. - Symptoms are unchanged. - Notes: YOU WERE OFFERED ADMISSION TONIGHT AND HAVE DECLINED, PLEASE RETURN TO THE ER TOMORROW MORNING FOR RE-EVALUATION, YOU ARE BEING GIVEN A SCRIPT FOR CLINDAMYCIN IN CASE YOU ARE UNABLE TO COME BACK TOMORROW, IT IS STRONGLY ADVISED THAT YOU COME BACK TO HAVE THIS MONITORED Historical: - Allergies: no known allergies; - Home Meds: 1. Methadone 35mg Oral once daily (Last dose: 10/06/2016) 2. albuterol sulfate 90 mcg/actuation Inhl HFAA every 4-6 hours prn - PMHx: Bipolar disorder; Hepatitis C; Kidney stones; polysubstance abuse; Asthma; SVT; - PSHx: HERNIA REPAIR; (July 2011); Cardiac Ablation; Sinus Surgery; KIDNEY STENTS; Ovarian Cystectomy- Left; Laparoscopy; - Social history: Smoking status: Patient uses tobacco products, current every day smoker. No barriers to communication noted, The patient speaks fluent Kinyarwanda, Speaks appropriately for age. - Family history: Not pertinent. - : The pt / caregiver states he / she is not on anticoagulants. Home medication list is obtained from the patient. - Exposure Risk Screening:: None identified. 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 4 in. (162.56 cm) (R); 20:15 BP 122 / 80; Pulse 86; Resp 18; Temp 97.4(O); Pulse Ox 100% on R/A; Pain 3/10; mcp 14:48 Body Mass Index 26.78 (70.76 kg, 162.56 cm) dd6 MDM: 16:46 -Blood Culture (Adults Only), peripheral from different site, or from device/port/PICC ck7 etc. if present ordered. 16:46 IV Saline Lock ordered. ck7 16:46 NS 0.9% 1000 ml IV at bolus once ordered. ck7 16:46 Clindamycin 900 mg IVPB once over 30 mins; dilute in 50mL of NS or D5W ordered. ck7 16:46 CBC with Diff Ordered. EDMS 16:46 MED Profile Ordered. EDMS 16:47 -Blood Culture Ordered. EDMS 16:47 Lactic Acid (Saez tube on ice) Ordered. EDMS 16:47 ESR Ordered. EDMS 16:47 CRP Ordered. EDMS 16:53 EXTREMITY NON VASCUL LIMITED Ordered. EDMS 17:02 -Blood Culture (Adults Only), peripheral from different site, or from device/port/PICC jb5 etc. if present complete. 17:04 BLOOD CULTURES Ordered. EDMS 17:09 [facility] Payment Agreement was scanned into [employer] and attached to record. gjb 17:09 Financial registration complete. gjb 18:12 CBC with Diff Reviewed. ck7 18:12 EXTREMITY NON VASCUL LIMITED Reviewed. ck7 20:10 CBC with Diff Reviewed. ck7 20:10 MED Profile Reviewed. ck7 20:10 CRP Reviewed. ck7 20:10 Lactic Acid (Saez tube on ice) Reviewed. ck7 20:10 ESR Reviewed. ck7 10/07 09:34 Refusal of Services was scanned into [employer] and attached to record. gb 09:34 T-Sheet-- Draft Copy was scanned into [employer] and attached to record. gb Administered Medications: 10/06 17:46 Drug: NS 0.9% 1000 ml Route: IV; Rate: bolus; Site: right upper arm; arelis 17:46 Drug: Clindamycin 900 mg Route: IVPB; Infused Over: 30 mins; Site: left upper arm; arelis Addendum: 10/10/2016 20:35 Radiology Callback: Radiology results faxed to primary care physician/provider. adafranklyn britt faxed us report. pt left ama. will fax to pcp in attempt for pcp to fu mlg. Signatures: Dispatcher [employer] EDMS Gladys Blue MD MD ml Knapp, Jean,RN RN Radha Real RN RN Xin Hernandez, RN RN mcp Pauly Millard, Reg Reg gb Diana Altamirano, KOBI PRIVATE MORTGAGE BANKER SAFE jb5 Brandt Javier, RPA-C RPA-Cck7 Emilie Martinez The chart was reviewed and I authenticate all verbal orders and agree with the evaluation and treatment provided.Corrections: (The following items were deleted from the chart) 10/06 16:53 16:48 DUPLEX Ext. UPPER UNILATE+US ordered. EDME EDME Attachments: 17:09 [facility] Payment Agreement gjb 09:34 T-Sheet-- Draft Copy gb Chart Complete MTDD
== END 2016-10-06 20:19 | disposition left against medical advice (07) ==
LOC: M ED 14:47
DX: L03.114 Cellulitis of left upper limb (principal); L03.113 Cellulitis of right upper limb; F41.9 Anxiety disorder, unspecified; B18.2 Chronic viral hepatitis C; Z87.442 Personal history of urinary calculi; F19.10 Other psychoactive substance abuse, uncomplicated; J45.909 Unspecified asthma, uncomplicated; I47.1 Supraventricular tachycardia; F17.210 Nicotine dependence, cigarettes, uncomplicated; Z79.51 Long term (current) use of inhaled steroids; Z79.899 Other long term (current) drug therapy

== ENCOUNTER 2016-10-18 02:13 | Emergency (ER) | payer OTHER ==
[2016-10-18 03:37] LABS: BASO # 0.2 K/mm3 (0.0-0.2); BASO % 1.8 % (0.0-1.0); EOS # 0.2 K/mm3 (0.0-0.50); EOS % 1.1 % (0.0-3.0); LARGE UNSTAINED CELL # 0.1 K/mm3 (0.0-0.4); LARGE UNSTAINED CELL % 0.9 % (0.0-4.0); LYMPH # 1.5 K/mm3 (1.5-6.5); LYMPH % 9.7 % (24.0-44.0); MEAN CORPUSCULAR HEMOGLOBIN 27.9 pg (27.0-33.0); MEAN CORPUSCULAR HGB CONC 31.4 g/dl (32.0-36.5); MEAN CORPUSCULAR VOLUME 88.8 fl (80.0-96.0); MONO # 0.8 K/mm3 (0.0-0.8); MONO % 5.9 % (0.0-5.0); NEUTROPHILS # 11.3 K/mm3 (1.8-7.7); NEUTROPHILS % 80.6 % (36.0-66.0); PLATELET COUNT, AUTOMATED 296 k/mm3 (150-450); RED CELL DISTRIBUTION WIDTH 15.2 % (11.5-14.5)
[2016-10-18 03:43] LABS: ANION GAP 9 MEQ/L (8-16); BLOOD UREA NITROGEN 8 MG/DL (7-18); CALCIUM LEVEL 8.5 MG/DL (8.5-10.1); CARBON DIOXIDE LEVEL 29 MEQ/L (21-32); CHLORIDE LEVEL 103 MEQ/L (98-107); CREATININE FOR GFR 0.65 MG/DL (0.55-1.02); GLOMERULAR FILTRATION RATE > 60.0 (>60); GLUCOSE, FASTING 100 MG/DL (70-105); POTASSIUM SERUM 4.2 MEQ/L (3.5-5.1); SODIUM LEVEL 141 MEQ/L (136-145)
--- NOTE | 2016-10-18 04:30 | REPUSA ---
Bilateral upper extremity ultrasound. Indication: Swelling and edema. Findings: Right-side: Small fluid collection adjacent to the base of the thumb measuring 10.5x4x9.1 mm. Loculated abscess is identified in the distal aspect of the right forearm measuring 3.1x1.8x2.8 cm. S urrounding soft tissue edema suggestive of cellulitis. Diffuse soft tissue edema and swelling in the proximal aspect of the left arm suggestive of celluliti s. Associated hypoechoic area measuring 1.6x0.3x0.7 cm suggestive of phlegmon formation. Impression: Bilateral changes of cellulitis. Bilateral multifocal fluid collections as described above.
[2016-10-18] MEDS ORDERED: CLINDAMYCIN 600 MG/50 ML PREMIX BAG As Ordered ONE (05:06)
[2016-10-18 05:17] LABS: CONTROL LINE HCG INT CTR LINE PRESENT
[2016-10-18] MEDS ORDERED: VANCOMYCIN 1000 MG/20 ML VIAL (J3370) As Ordered ONE (05:39)
--- NOTE | 2016-10-18 06:46 | REP ---
Clinical: Trauma. Technique: AP and lateral views of the right forearm. Findings: Osseous structures are intact and there is no evidence for acute fracture or dislocation. Joint spaces are normal. Surrounding soft tissues are unremarkable. Impression: Normal right forearm radiographs. No acute fracture or dislocation. Signed by Rufino Leiva MD 10/18/2016 06:38 A
--- NOTE | 2016-10-18 06:59 | EDDOCDS ---
Physician Documentation [facility] Name: Marla Washington Age: 31 yrs Sex: Female : 1985 Arrival Date: 10/18/2016 Time: 02:13 Bed 9 Private MD: Disposition: 10/18/16 05:04 Patient has left against medical advice. Impression: Cellulitis of right upper limb - with abscess, Cellulitis of left upper limb - with abscess. - Patients states they are going to Home/Self Care. - Condition is Stable. - Discharge Instructions: Abscess, Cellulitis. - Prescriptions for Keflex 500 mg Oral Capsule - take 1 capsule by ORAL route every 6 hours for 10 days; 40 capsule. Bactrim DS 800- 160 mg Oral Tablet - take 1 tablet by ORAL route every 12 hours for 10 days; 20 tablet. Medication Reconciliation, Local Pharmacy Hours form. [facility]; When: As soon as possible; Reason: Recheck today's complaints. - Problem is new. - Symptoms are unchanged. - Notes: You were seen in the ED for cellulitis of both of your arms. Ultrasound additionally showed signs of abscess formation. Surgery was consulted and recommended admission for IV antibiotics and drainage ideally, or alternatively waiting in the ER for possible ultrasound guided aspiration by Interventional Radiology in the morning. As you have refused this you are leaving against our medical advice. Take the antibiotics as written. [facility] to arrange to be seen to establish primary care. Return to the ED at any time if your symptoms worsen or you change your mind. Historical: - Allergies: no known allergies; - Home Meds: 1. albuterol sulfate 90 mcg/actuation Inhl HFAA every 4-6 hours prn 2. Methadone 45 mg Oral 3. clindamycin HCl 300 mg Oral cap 1 cap every 6 hours - PMHx: Asthma; Bipolar disorder; Hepatitis C; Kidney stones; polysubstance abuse; svt; - PSHx: HERNIA REPAIR; (July 2011); Cardiac Ablation; Sinus Surgery; KIDNEY STENTS; Ovarian Cystectomy- Left; Laparoscopy; - Social history: Smoking status: Patient uses tobacco products, current every day smoker. No barriers to communication noted, The patient speaks fluent Guatemalan, Speaks appropriately for age, Preferred Language: Guatemalan Patient uses street drugs, heroin. - Family history: Not pertinent. - : The pt / caregiver states he / she is not on anticoagulants. Home medication list is obtained from the patient, Unable to Verify Home Med List with the patient / caregiver. - Exposure Risk Screening:: None identified. 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 4 in. (162.56 cm) (R); Pain 8/10; 02:23 Body Mass Index 25.75 (68.04 kg, 162.56 cm) lf1 MDM: 03:02 IV Saline Lock ordered. br1 03:02 -Blood Culture (Adults Only), peripheral from different site, or from device/port/PICC br1 etc. if present ordered. 03:03 CBC with Diff Ordered. EDMS 03:03 BMP Ordered. EDMS 03:03 -Blood Culture Ordered. EDMS 03:05 Forearm (radius/ulna) Ordered. EDMS 03:05 Misc Battery Plate Remover Order ordered. br1 03:06 -Blood Culture (Adults Only), peripheral from different site, or from device/port/PICC tmm1 etc. if present complete. 03:09 BLOOD CULTURES Ordered. EDMS 03:10 EXTREMITY NON VASCUL LIMITED Ordered. EDMS 03:19 vancomycin 1 grams IVPB once over 60 mins; dilute in 250mL of NS or D5W ordered. br1 03:19 Clindamycin 600 mg IVPB once over 30 mins; dilute in 50mL of NS or D5W ordered. br1 03:22 Financial registration complete. pm4 03:22 [facility] Payment Agreement was scanned into [employer] and attached to record. pm4 04:45 CBC with Diff Reviewed. br1 04:45 BMP Reviewed. br1 05:08 HCG,Serum Qualitative Ordered. EDMS 05:08 Misc Battery Plate Remover Order complete. tmm1 05:42 HCG,Serum Qualitative Reviewed. br1 05:42 EXTREMITY NON VASCUL LIMITED Reviewed. br1 Administered Medications: 05:16 Drug: Clindamycin 600 mg [clindamycin 600 mg/50 mL in 5 % dextrose intravenous af2 piggyback] Route: IVPB; Infused Over: 30 mins; Site: right antecubital; 05:51 Drug: vancomycin 1 grams [vancomycin 1,000 mg intravenous injection] Route: IVPB; af2 Infused Over: 60 mins; Site: right antecubital; Signatures: Dispatcher [employer] Jeanine Vega RN RN lf1 Torsten Garcia MD MD br1 Doroteo Saucedasa, WASTE TRANSPORTATION TECHNICIAN WASTE TRANSPORTATION TECHNICIAN tmm1 Berta Mace RN RN af2 Simone Horowitz, Reg Reg pm4 The chart was reviewed and I authenticate all verbal orders and agree with the evaluation and treatment provided.Attachments: 03:22 [facility] Payment Agreement pm4 MTDD
--- NOTE | 2016-10-18 07:00 | EDDOCDS ---
Nurse's Notes [facility] Name: Marla Washington Age: 31 yrs Sex: Female : 1985 Arrival Date: 10/18/2016 Time: 02:13 Bed 9 Private MD: Diagnosis: Cellulitis of right upper limb-with abscess;Cellulitis of left upper limb-with abscess Presentation: 10/18 02:18 Presenting complaint:. lf1 02:23 Presenting complaint: Patient states: Pt was seen in the ED on the for cellulitis lf1 of right UE and declined admission with IV antibiotics. Pt returns today with worsening swelling and redness to Right arm and left arm. Area outlined in surgical marker. Pt. reports pain at 8/10. Pt states she can not be admitted because she has no one to care for her animals. Pt states she was on oral antibiotics but does not think she took them correctly and now swelling is worse. 02:23 Adult Sepsis Screening: The patient does not have new or worsening altered mentation. lf1 Patient's respiratory rate is less than 22. Adult Sepsis Screening: Systolic blood pressure is greater than 100. Patient has a qSOFA score of 0- Negative Sepsis Screen. Suicide/Homicide risk assessment- the patient denies having any suicidal and/or homicidal ideations and does not present with any other emotional, behavioral or mental health complaints. Status: Patient is not a customer service leader or dependent. Transition of care: patient was not received from another setting of care. 02:23 Acuity: KRISH Level 2 lf1 02:23 Method Of Arrival: Walkin/Carried/Asstd lf1 Triage Assessment: 02:31 General: Appears distressed, Behavior is anxious, restless. Pain: Location: right arm lf1 Pain currently is 8 out of 10 on a pain scale. HIV screening NA for this visit Offered previously. Neurological: Level of Consciousness is awake, alert. Respiratory: Respiratory effort is even, unlabored. GI: Denies nausea, vomiting. Derm: Skin is red, Swollen area noted on right arm and left arm. Injury Description: No known injury. 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 albuterol sulfate 90 mcg/actuation Inhl HFAA every 4-6 hours prn 2. Methadone 45 mg Oral 3. clindamycin HCl 300 mg Oral cap 1 cap every 6 hours - PMHx: Asthma; Bipolar disorder; Hepatitis C; Kidney stones; polysubstance abuse; svt; - PSHx: HERNIA REPAIR; (July 2011); Cardiac Ablation; Sinus Surgery; KIDNEY STENTS; Ovarian Cystectomy- Left; Laparoscopy; - Social history: Smoking status: Patient uses tobacco products, current every day smoker. No barriers to communication noted, The patient speaks fluent Icelandic, Speaks appropriately for age, Preferred Language: Icelandic Patient uses street drugs, heroin. - Family history: Not pertinent. - : The pt / caregiver states he / she is not on anticoagulants. Home medication list is obtained from the patient, Unable to Verify Home Med List with the patient / caregiver. - Exposure Risk Screening:: None identified. Screenin:54 Screening information is obtained from the patient. Fall risk: No risks identified. af2 Assistance ADL's: requires no assistance with activities of daily living. Abuse/DV Screen: The patient / caregiver reports he/she is: not in a situation that causes fear, pain or injury. Nutritional screening: No deficits noted. Advance Directives: Currently, there is no health care proxy. home support is adequate. Assessment: 02:54 General: Appears in no apparent distress, Behavior is cooperative, erythema and edema af2 noted to right upper arm and left upper arm. pt recently seen for same, signed out AMA. states that she will do so again, as she takes methadone and has no one to look after her dog. states that she will just come back every 12 hours for IV abx. pt reports non-compliance with po abx, states that she didn't take them at correct times, missed a few days, and then wounds began looking better and she decided to stop taking abx all together. . Respiratory: Airway is patent Respiratory effort is even, unlabored. Derm: Skin is normal. Musculoskeletal: No deficits noted. 04:02 General: pt returned from CT at this time, tolerated procedure well.. af2 05:16 General: Appears in no apparent distress, Behavior is cooperative, pt seated on af2 stretcher in upright position, visiting with boyfriend. iv abx infusing per order. will continue to monitor. . 06:22 General: Appears in no apparent distress, Behavior is appropriate for age, cooperative, af2 pt lying on stretcher in upright position, resting quietly with eyes closed. arouses easily to name.. Respiratory: Airway is patent Respiratory effort is even, unlabored. Derm: Skin is normal. Vital Signs: 02:23 BP 138 / 86; Pulse 126; Resp 20; Temp 98.9(O); Pulse Ox 97% on R/A; Weight 68.04 kg; lf1 Height 5 ft. 4 in. (162.56 cm) (R); Pain 8/10; 02:23 Body Mass Index 25.75 (68.04 kg, 162.56 cm) lf1 Vitals: 02:23 Log In Time: October 18, 2016 at 02:16. lf1 ED Course: 02:15 Patient visited by Dorina Mcadams Reg. hs2 02:15 Patient moved to Waiting hs2 02:29 Triage Initiated lf1 02:41 Berta Mace RN is Primary Nurse. tmm1 02:41 Patient moved to 9 tmm1 02:50 Torsten Garcia MD is Attending Physician. br1 02:54 Patient visited by Berta Mace RN. af2 02:54 The patient / caregiver is instructed regarding the plan of care and ED course. Patient af2 has correct armband on for positive identification. 02:54 No procedures done that require assistance. af2 02:59 Patient visited by Berta Mace RN. af2 03:02 Patient visited by Torsten Garcia MD. br1 03:16 Patient visited by Berta Mace RN. af2 03:16 -Blood Culture Sent. af2 03:16 BMP Sent. af2 03:16 CBC with Diff Sent. af2 03:16 Inserted saline lock: 22 gauge in right antecubital area and blood collected. The af2 patient tolerated the procedure well. 03:22 [facility] Payment Agreement was scanned into [employer] and attached to record. pm4 03:47 Patient visited by Berta Mace RN. af2 04:03 Patient visited by Berta Mace RN. af2 05:02 [facility] is Referral Physician. br1 05:06 EXTREMITY NON VASCUL LIMITED Returned. EDMS 05:17 Patient visited by Berta Mace RN. af2 05:52 Patient visited by Berta Mace RN. af2 06:23 Patient visited by Berta Mace RN. af2 Administered Medications: 05:16 Drug: Clindamycin 600 mg [clindamycin 600 mg/50 mL in 5 % dextrose intravenous af2 piggyback] Route: IVPB; Infused Over: 30 mins; Site: right antecubital; 05:51 Drug: vancomycin 1 grams [vancomycin 1,000 mg intravenous injection] Route: IVPB; af2 Infused Over: 60 mins; Site: right antecubital; Order Results: Lab Order: CBC with Diff; SPEC'M 10/18/16 03:14 Test: WHITE BLOOD COUNT; Value: 14.0; Range: 4.0-10.0; Abnormal: Above high normal; Units: K/mm3; Status: F Test: RED BLOOD COUNT; Value: 4.39; Range: 4.00-5.40; Units: M/mm3; Status: F Test: HEMOGLOBIN; Value: 12.2; Range: 12.0-16.0; Units: g/dl; Status: F Test: HEMATOCRIT; Value: 39.0; Range: 36.0-47.0; Units: %; Status: F Test: MEAN CORPUSCULAR VOLUME; Value: 88.8; Range: 80.0-96.0; Units: fl; Status: F Test: MEAN CORPUSCULAR HEMOGLOBIN; Value: 27.9; Range: 27.0-33.0; Units: pg; Status: F Test: MEAN CORPUSCULAR HGB CONC; Value: 31.4; Range: 32.0-36.5; Abnormal: Below low normal; Units: g/dl; Status: F Test: RED CELL DISTRIBUTION WIDTH; Value: 15.2; Range: 11.5-14.5; Abnormal: Above high normal; Units: %; Status: F Test: PLATELET COUNT, AUTOMATED; Value: 296; Range: 150-450; Units: k/mm3; Status: F Test: NEUTROPHILS %; Value: 80.6; Range: 36.0-66.0; Abnormal: Above high normal; Units: %; Status: F Test: LYMPH %; Value: 9.7; Range: 24.0-44.0; Abnormal: Below low normal; Units: %; Status: F Test: MONO %; Value: 5.9; Range: 0.0-5.0; Abnormal: Above high normal; Units: %; Status: F Test: EOS %; Value: 1.1; Range: 0.0-3.0; Units: %; Status: F Test: BASO %; Value: 1.8; Range: 0.0-1.0; Abnormal: Above high normal; Units: %; Status: F Test: LARGE UNSTAINED CELL %; Value: 0.9; Range: 0.0-4.0; Units: %; Status: F Test: NEUTROPHILS #; Value: 11.3; Range: 1.8-7.7; Abnormal: Above high normal; Units: K/mm3; Status: F Test: LYMPH #; Value: 1.5; Range: 1.5-6.5; Units: K/mm3; Status: F Test: MONO #; Value: 0.8; Range: 0.0-0.8; Units: K/mm3; Status: F Test: EOS #; Value: 0.2; Range: 0.0-0.50; Units: K/mm3; Status: F Test: BASO #; Value: 0.2; Range: 0.0-0.2; Units: K/mm3; Status: F Test: LARGE UNSTAINED CELL #; Value: 0.1; Range: 0.0-0.4; Units: K/mm3; Status: F Lab Order: [facility]; SPEC'M 10/18/16 03:14 Test: GLUCOSE, FASTING; Value: 100; Range: 70-105; Units: MG/DL; Status: F Test: BLOOD UREA NITROGEN; Value: 8; Range: 7-18; Units: MG/DL; Status: F Test: CREATININE FOR GFR; Value: 0.65; Range: 0.55-1.02; Units: MG/DL; Status: F Test: GLOMERULAR FILTRATION RATE; Value: > 60.0; Range: >60; Status: F Test: SODIUM LEVEL; Value: 141; Range: 136-145; Units: MEQ/L; Status: F Test: POTASSIUM SERUM; Value: 4.2; Range: 3.5-5.1; Units: MEQ/L; Status: F Test: CHLORIDE LEVEL; Value: 103; Range: 98-107; Units: MEQ/L; Status: F Test: CARBON DIOXIDE LEVEL; Value: 29; Range: 21-32; Units: MEQ/L; Status: F Test: ANION GAP; Value: 9; Range: 8-16; Units: MEQ/L; Status: F Test: CALCIUM LEVEL; Value: 8.5; Range: 8.5-10.1; Units: MG/DL; Status: F Test Note: ; Units are mL/min/1.73 m2 Chronic Kidney Disease Staging per NKF: Stage I & II GFR >=60 Normal to Mildly Decreased Stage III GFR 30-59 Moderately Decreased Stage IV GFR 15-29 Severely Decreased Stage V GFR <15 Very Little GFR Left ESRD GFR <15 on HOOP PUNCH OPERATOR HELPER Lab Order: HCG,Serum Qualitative; SPEC'M 10/18/16 03:14 Test: HCG, SERUM QUALITATIVE; Value: NEGATIVE; Range: NEGATIVE; Status: F Radiology Order: EXTREMITY NON VASCUL LIMITED Test: EXTREMITY NON VASCUL LIMITED REASON FOR EXAMINATION: R/O ABSSESS, BILATERAL; ; Bilateral upper extremity ultrasound.; Indication: Swelling and edema.; Findings:; Right-side:; Small fluid collection adjacent to the base of the thumb measuring 10.5x4x9.1 mm.; Loculated abscess is identified in the distal aspect of the right forearm measuring 3.1x1.8x2.8 cm. S; urrounding soft tissue edema suggestive of cellulitis.; Diffuse soft tissue edema and swelling in the proximal aspect of the left arm suggestive of celluliti; s. Associated hypoechoic area measuring 1.6x0.3x0.7 cm suggestive of phlegmon formation.; Impression:; Bilateral changes of cellulitis.; Bilateral multifocal fluid collections as described above.; ; Outcome: 05:04 Patient left against medical advice. br1 06:57 Discharge Assessment:. The patient is leaving AMA: AMA form signed, Notification of AMA af2 status is made to the charge nurse, the professor of social work, the ED attending physician. 06:58 Patient left the ED. af2 Signatures: Dispatcher [employer] EDMS Jeanine Booth RN RN lf1 Torsten Garcia MD MD br1 Sameera Sauceda PCA TONGUE AND GROOVE MACHINE OPERATOR tmm1 Berta Mace RN RN af2 Dorina Mcadams, Reg Reg hs2 Simone Horowitz, Reg Reg pm4 MTDD
--- NOTE | 2016-10-20 07:59 | EDDOCDS ---
Physician Documentation [facility] Name: Marla Washington Age: 31 yrs Sex: Female : 1985 Arrival Date: 10/18/2016 Time: 02:13 Bed 9 Private MD: Disposition: 10/18/16 05:04 Patient has left against medical advice. Impression: Cellulitis of right upper limb - with abscess, Cellulitis of left upper limb - with abscess. - Patients states they are going to Home/Self Care. - Condition is Stable. - Discharge Instructions: Abscess, Cellulitis. - Prescriptions for Keflex 500 mg Oral Capsule - take 1 capsule by ORAL route every 6 hours for 10 days; 40 capsule. Bactrim DS 800- 160 mg Oral Tablet - take 1 tablet by ORAL route every 12 hours for 10 days; 20 tablet. Medication Reconciliation, Local Pharmacy Hours form. [facility]; When: As soon as possible; Reason: Recheck today's complaints. - Problem is new. - Symptoms are unchanged. - Notes: You were seen in the ED for cellulitis of both of your arms. Ultrasound additionally showed signs of abscess formation. Surgery was consulted and recommended admission for IV antibiotics and drainage ideally, or alternatively waiting in the ER for possible ultrasound guided aspiration by Interventional Radiology in the morning. As you have refused this you are leaving against our medical advice. Take the antibiotics as written. [facility] to arrange to be seen to establish primary care. Return to the ED at any time if your symptoms worsen or you change your mind. Historical: - Allergies: no known allergies; - Home Meds: 1. albuterol sulfate 90 mcg/actuation Inhl HFAA every 4-6 hours prn 2. Methadone 45 mg Oral 3. clindamycin HCl 300 mg Oral cap 1 cap every 6 hours - PMHx: Asthma; Bipolar disorder; Hepatitis C; Kidney stones; polysubstance abuse; svt; - PSHx: HERNIA REPAIR; (July 2011); Cardiac Ablation; Sinus Surgery; KIDNEY STENTS; Ovarian Cystectomy- Left; Laparoscopy; - Social history: Smoking status: Patient uses tobacco products, current every day smoker. No barriers to communication noted, The patient speaks fluent Bahamian, Speaks appropriately for age, Preferred Language: Bahamian Patient uses street drugs, heroin. - Family history: Not pertinent. - : The pt / caregiver states he / she is not on anticoagulants. Home medication list is obtained from the patient, Unable to Verify Home Med List with the patient / caregiver. - Exposure Risk Screening:: None identified. 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 4 in. (162.56 cm) (R); Pain 8/10; 07:03 BP 138 / 89 LA Standing (auto/lg); Pulse 114; Resp 16; Pulse Ox 99% on R/A; Pain 7/10; rs6 02:23 Body Mass Index 25.75 (68.04 kg, 162.56 cm) lf1 MDM: 03:02 IV Saline Lock ordered. br1 03:02 -Blood Culture (Adults Only), peripheral from different site, or from device/port/PICC br1 etc. if present ordered. 03:03 CBC with Diff Ordered. EDMS 03:03 BMP Ordered. EDMS 03:03 -Blood Culture Ordered. EDMS 03:05 Forearm (radius/ulna) Ordered. EDMS 03:05 Misc Director Of Integrated Marketing Order ordered. br1 03:06 -Blood Culture (Adults Only), peripheral from different site, or from device/port/PICC tmm1 etc. if present complete. 03:09 BLOOD CULTURES Ordered. EDMS 03:10 EXTREMITY NON VASCUL LIMITED Ordered. EDMS 03:19 vancomycin 1 grams IVPB once over 60 mins; dilute in 250mL of NS or D5W ordered. br1 03:19 Clindamycin 600 mg IVPB once over 30 mins; dilute in 50mL of NS or D5W ordered. br1 03:22 Financial registration complete. pm4 03:22 [facility] Payment Agreement was scanned into [employer] and attached to record. pm4 04:45 CBC with Diff Reviewed. br1 04:45 BMP Reviewed. br1 05:08 HCG,Serum Qualitative Ordered. EDMS 05:08 Misc Director Of Integrated Marketing Order complete. tmm1 05:42 HCG,Serum Qualitative Reviewed. br1 05:42 EXTREMITY NON VASCUL LIMITED Reviewed. br1 14:07 Refusal of Services was scanned into [employer] and attached to record. gb 14:08 T-Sheet-- Draft Copy was scanned into [employer] and attached to record. gb 14:08 Radiology Report was scanned into [employer] and attached to record. gb Administered Medications: 05:16 Drug: Clindamycin 600 mg [clindamycin 600 mg/50 mL in 5 % dextrose intravenous af2 piggyback] Route: IVPB; Infused Over: 30 mins; Site: right antecubital; 05:51 Drug: vancomycin 1 grams [vancomycin 1,000 mg intravenous injection] Route: IVPB; af2 Infused Over: 60 mins; Site: right antecubital; Signatures: Dispatcher [employer] EDMS Pauly Millard, Reg Reg gb Jeanine Booth RN RN lf1 Torsten Garcia MD MD br1 Sameera Sauceda, PROFESSOR OF SOCIOLOGY PROFESSOR OF SOCIOLOGY tmm1 Berta Mace RN RN af2 Simone Horowitz, Reg Reg pm4 The chart was reviewed and I authenticate all verbal orders and agree with the evaluation and treatment provided.Attachments: 03:22 [facility] Payment Agreement pm4 14:08 T-Sheet-- Draft Copy gb Chart [facility]
--- NOTE | 2016-10-20 07:59 | EDDOCDS ---
Physician Documentation [facility] Name: Marla Washington Age: 31 yrs Sex: Female : 1985 Arrival Date: 10/18/2016 Time: 02:13 Bed 9 Private MD: Disposition: 10/18/16 05:04 Patient has left against medical advice. Impression: Cellulitis of right upper limb - with abscess, Cellulitis of left upper limb - with abscess. - Patients states they are going to Home/Self Care. - Condition is Stable. - Discharge Instructions: Abscess, Cellulitis. - Prescriptions for Keflex 500 mg Oral Capsule - take 1 capsule by ORAL route every 6 hours for 10 days; 40 capsule. Bactrim DS 800- 160 mg Oral Tablet - take 1 tablet by ORAL route every 12 hours for 10 days; 20 tablet. Medication Reconciliation, Local Pharmacy Hours form. [facility]: [facility]; When: As soon as possible; Reason: Recheck today's complaints. - Problem is new. - Symptoms are unchanged. - Notes: You were seen in the ED for cellulitis of both of your arms. Ultrasound additionally showed signs of abscess formation. Surgery was consulted and recommended admission for IV antibiotics and drainage ideally, or alternatively waiting in the ER for possible ultrasound guided aspiration by Interventional Radiology in the morning. As you have refused this you are leaving against our medical advice. Take the antibiotics as written. [facility] the [facility] to arrange to be seen to establish primary care. Return to the ED at any time if your symptoms worsen or you change your mind. Historical: - Allergies: no known allergies; - Home Meds: 1. albuterol sulfate 90 mcg/actuation Inhl HFAA every 4-6 hours prn 2. Methadone 45 mg Oral 3. clindamycin HCl 300 mg Oral cap 1 cap every 6 hours - PMHx: Asthma; Bipolar disorder; Hepatitis C; Kidney stones; polysubstance abuse; svt; - PSHx: HERNIA REPAIR; (July 2011); Cardiac Ablation; Sinus Surgery; KIDNEY STENTS; Ovarian Cystectomy- Left; Laparoscopy; - Social history: Smoking status: Patient uses tobacco products, current every day smoker. No barriers to communication noted, The patient speaks fluent Jordanian, Speaks appropriately for age, Preferred Language: Jordanian Patient uses street drugs, heroin. - Family history: Not pertinent. - : The pt / caregiver states he / she is not on anticoagulants. Home medication list is obtained from the patient, Unable to Verify Home Med List with the patient / caregiver. - Exposure Risk Screening:: None identified. 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 4 in. (162.56 cm) (R); Pain 8/10; 07:03 BP 138 / 89 LA Standing (auto/lg); Pulse 114; Resp 16; Pulse Ox 99% on R/A; Pain 7/10; rs6 02:23 Body Mass Index 25.75 (68.04 kg, 162.56 cm) lf1 MDM: 03:02 IV Saline Lock ordered. br1 03:02 -Blood Culture (Adults Only), peripheral from different site, or from device/port/PICC br1 etc. if present ordered. 03:03 CBC with Diff Ordered. EDMS 03:03 BMP Ordered. EDMS 03:03 -Blood Culture Ordered. EDMS 03:05 Forearm (radius/ulna) Ordered. EDMS 03:05 Misc Dental Manager Order ordered. br1 03:06 -Blood Culture (Adults Only), peripheral from different site, or from device/port/PICC tmm1 etc. if present complete. 03:09 BLOOD CULTURES Ordered. EDMS 03:10 EXTREMITY NON VASCUL LIMITED Ordered. EDMS 03:19 vancomycin 1 grams IVPB once over 60 mins; dilute in 250mL of NS or D5W ordered. br1 03:19 Clindamycin 600 mg IVPB once over 30 mins; dilute in 50mL of NS or D5W ordered. br1 03:22 Financial registration complete. pm4 03:22 [facility] Payment Agreement was scanned into [employer] and attached to record. pm4 04:45 CBC with Diff Reviewed. br1 04:45 BMP Reviewed. br1 05:08 HCG,Serum Qualitative Ordered. EDMS 05:08 Misc Dental Manager Order complete. tmm1 05:42 HCG,Serum Qualitative Reviewed. br1 05:42 EXTREMITY NON VASCUL LIMITED Reviewed. br1 14:07 Refusal of Services was scanned into [employer] and attached to record. gb 14:08 T-Sheet-- Draft Copy was scanned into [employer] and attached to record. gb 14:08 Radiology Report was scanned into [employer] and attached to record. gb Administered Medications: 05:16 Drug: Clindamycin 600 mg [clindamycin 600 mg/50 mL in 5 % dextrose intravenous af2 piggyback] Route: IVPB; Infused Over: 30 mins; Site: right antecubital; 05:51 Drug: vancomycin 1 grams [vancomycin 1,000 mg intravenous injection] Route: IVPB; af2 Infused Over: 60 mins; Site: right antecubital; Signatures: Dispatcher [employer] EDMS Pauly Millard, Reg Reg gb Jeanine Booth RN RN lf1 Torsten Garcia MD MD br1 Sameera Sauceda, WIRE FRAME LAMP SHADE MAKER WIRE FRAME LAMP SHADE MAKER tmm1 Berta Mace RN RN af2 Simone Horowitz, Reg Reg pm4 The chart was reviewed and I authenticate all verbal orders and agree with the evaluation and treatment provided.Attachments: 03:22 [facility] Payment Agreement pm4 14:08 T-Sheet-- Draft Copy gb Chart Complete [facility]
--- NOTE | 2016-10-20 07:59 | EDDOCDS ---
Nurse's Notes [facility] Name: Marla Washington Age: 31 yrs Sex: Female : 1985 Arrival Date: 10/18/2016 Time: 02:13 Bed 9 Private MD: Diagnosis: Cellulitis of right upper limb-with abscess;Cellulitis of left upper limb-with abscess Presentation: 10/18 02:18 Presenting complaint:. lf1 02:23 Presenting complaint: Patient states: Pt was seen in the ED on the for cellulitis lf1 of right UE and declined admission with IV antibiotics. Pt returns today with worsening swelling and redness to Right arm and left arm. Area outlined in surgical marker. Pt. reports pain at 8/10. Pt states she can not be admitted because she has no one to care for her animals. Pt states she was on oral antibiotics but does not think she took them correctly and now swelling is worse. 02:23 Adult Sepsis Screening: The patient does not have new or worsening altered mentation. lf1 Patient's respiratory rate is less than 22. Adult Sepsis Screening: Systolic blood pressure is greater than 100. Patient has a qSOFA score of 0- Negative Sepsis Screen. Suicide/Homicide risk assessment- the patient denies having any suicidal and/or homicidal ideations and does not present with any other emotional, behavioral or mental health complaints. Status: Patient is not a rehab services aide or dependent. Transition of care: patient was not received from another setting of care. 02:23 Acuity: KRISH Level 2 lf1 02:23 Method Of Arrival: Walkin/Carried/Asstd lf1 Triage Assessment: 02:31 General: Appears distressed, Behavior is anxious, restless. Pain: Location: right arm lf1 Pain currently is 8 out of 10 on a pain scale. HIV screening NA for this visit Offered previously. Neurological: Level of Consciousness is awake, alert. Respiratory: Respiratory effort is even, unlabored. GI: Denies nausea, vomiting. Derm: Skin is red, Swollen area noted on right arm and left arm. Injury Description: No known injury. 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 albuterol sulfate 90 mcg/actuation Inhl HFAA every 4-6 hours prn 2. Methadone 45 mg Oral 3. clindamycin HCl 300 mg Oral cap 1 cap every 6 hours - PMHx: Asthma; Bipolar disorder; Hepatitis C; Kidney stones; polysubstance abuse; svt; - PSHx: HERNIA REPAIR; (July 2011); Cardiac Ablation; Sinus Surgery; KIDNEY STENTS; Ovarian Cystectomy- Left; Laparoscopy; - Social history: Smoking status: Patient uses tobacco products, current every day smoker. No barriers to communication noted, The patient speaks fluent Andorran, Speaks appropriately for age, Preferred Language: Andorran Patient uses street drugs, heroin. - Family history: Not pertinent. - : The pt / caregiver states he / she is not on anticoagulants. Home medication list is obtained from the patient, Unable to Verify Home Med List with the patient / caregiver. - Exposure Risk Screening:: None identified. Screenin:54 Screening information is obtained from the patient. Fall risk: No risks identified. af2 Assistance ADL's: requires no assistance with activities of daily living. Abuse/DV Screen: The patient / caregiver reports he/she is: not in a situation that causes fear, pain or injury. Nutritional screening: No deficits noted. Advance Directives: Currently, there is no health care proxy. home support is adequate. Assessment: 02:54 General: Appears in no apparent distress, Behavior is cooperative, erythema and edema af2 noted to right upper arm and left upper arm. pt recently seen for same, signed out AMA. states that she will do so again, as she takes methadone and has no one to look after her dog. states that she will just come back every 12 hours for IV abx. pt reports non-compliance with po abx, states that she didn't take them at correct times, missed a few days, and then wounds began looking better and she decided to stop taking abx all together. . Respiratory: Airway is patent Respiratory effort is even, unlabored. Derm: Skin is normal. Musculoskeletal: No deficits noted. 04:02 General: pt returned from CT at this time, tolerated procedure well.. af2 05:16 General: Appears in no apparent distress, Behavior is cooperative, pt seated on af2 stretcher in upright position, visiting with boyfriend. iv abx infusing per order. will continue to monitor. . 06:22 General: Appears in no apparent distress, Behavior is appropriate for age, cooperative, af2 pt lying on stretcher in upright position, resting quietly with eyes closed. arouses easily to name.. Respiratory: Airway is patent Respiratory effort is even, unlabored. Derm: Skin is normal. Vital Signs: 02:23 BP 138 / 86; Pulse 126; Resp 20; Temp 98.9(O); Pulse Ox 97% on R/A; Weight 68.04 kg; lf1 Height 5 ft. 4 in. (162.56 cm) (R); Pain 8/10; 07:03 BP 138 / 89 LA Standing (auto/lg); Pulse 114; Resp 16; Pulse Ox 99% on R/A; Pain 7/10; rs6 02:23 Body Mass Index 25.75 (68.04 kg, 162.56 cm) [facility] Vitals: 02:23 Log In Time: October 18, 2016 at 02:16. 1 ED Course: 02:15 Patient visited by Dorina Mcadams Reg. hs2 02:15 Patient moved to Waiting hs2 02:29 Triage Initiated lf1 02:41 Berta Mace RN is Primary Nurse. tmm1 02:41 Patient moved to 9 tmm1 02:50 Torsten Garcia MD is Attending Physician. br1 02:54 Patient visited by Berta Mace RN. af2 02:54 The patient / caregiver is instructed regarding the plan of care and ED course. Patient af2 has correct armband on for positive identification. 02:54 No procedures done that require assistance. af2 02:59 Patient visited by Berta Mace RN. af2 03:02 Patient visited by Torsten Garcia MD. br1 03:16 Patient visited by Berta Mace RN. af2 03:16 -Blood Culture Sent. af2 03:16 BMP Sent. af2 03:16 CBC with Diff Sent. af2 03:16 Inserted saline lock: 22 gauge in right antecubital area and blood collected. The af2 patient tolerated the procedure well. 03:22 [facility] [place] was scanned into [employer] and attached to record. pm4 03:47 Patient visited by Berta Mace RN. af2 04:03 Patient visited by Berta Mace RN. af2 05:02 [facility] is Referral Physician. br1 05:06 EXTREMITY NON VASCUL LIMITED Returned. EDMS 05:17 Patient visited by Berta Mace RN. af2 05:52 Patient visited by Berta Mace RN. af2 06:23 Patient visited by Berta Mace RN. af2 07:04 Patient visited by Josseline Patel PCA. rs6 07:16 Forearm (radius/ulna) Returned. EDMS 14:07 Refusal of Services was scanned into [employer] and attached to record. gb 14:08 T-Sheet-- Draft Copy was scanned into [employer] and attached to record. gb 14:08 Radiology Report was scanned into [employer] and attached to record. gb Administered Medications: 05:16 Drug: Clindamycin 600 mg [clindamycin 600 mg/50 mL in 5 % dextrose intravenous af2 piggyback] Route: IVPB; Infused Over: 30 mins; Site: right antecubital; 05:51 Drug: vancomycin 1 grams [vancomycin 1,000 mg intravenous injection] Route: IVPB; af2 Infused Over: 60 mins; Site: right antecubital; Attachments: 14:07 Refusal of Services gb Order Results: Lab Order: CBC with Diff; SPEC'M 10/18/16 03:14 Test: WHITE BLOOD COUNT; Value: 14.0; Range: 4.0-10.0; Abnormal: Above high normal; Units: K/mm3; Status: F Test: RED BLOOD COUNT; Value: 4.39; Range: 4.00-5.40; Units: M/mm3; Status: F Test: HEMOGLOBIN; Value: 12.2; Range: 12.0-16.0; Units: g/dl; Status: F Test: HEMATOCRIT; Value: 39.0; Range: 36.0-47.0; Units: %; Status: F Test: MEAN CORPUSCULAR VOLUME; Value: 88.8; Range: 80.0-96.0; Units: fl; Status: F Test: MEAN CORPUSCULAR HEMOGLOBIN; Value: 27.9; Range: 27.0-33.0; Units: pg; Status: F Test: MEAN CORPUSCULAR HGB CONC; Value: 31.4; Range: 32.0-36.5; Abnormal: Below low normal; Units: g/dl; Status: F Test: RED CELL DISTRIBUTION WIDTH; Value: 15.2; Range: 11.5-14.5; Abnormal: Above high normal; Units: %; Status: F Test: PLATELET COUNT, AUTOMATED; Value: 296; Range: 150-450; Units: k/mm3; Status: F Test: NEUTROPHILS %; Value: 80.6; Range: 36.0-66.0; Abnormal: Above high normal; Units: %; Status: F Test: LYMPH %; Value: 9.7; Range: 24.0-44.0; Abnormal: Below low normal; Units: %; Status: F Test: MONO %; Value: 5.9; Range: 0.0-5.0; Abnormal: Above high normal; Units: %; Status: F Test: EOS %; Value: 1.1; Range: 0.0-3.0; Units: %; Status: F Test: BASO %; Value: 1.8; Range: 0.0-1.0; Abnormal: Above high normal; Units: %; Status: F Test: LARGE UNSTAINED CELL %; Value: 0.9; Range: 0.0-4.0; Units: %; Status: F Test: NEUTROPHILS #; Value: 11.3; Range: 1.8-7.7; Abnormal: Above high normal; Units: K/mm3; Status: F Test: LYMPH #; Value: 1.5; Range: 1.5-6.5; Units: K/mm3; Status: F Test: MONO #; Value: 0.8; Range: 0.0-0.8; Units: K/mm3; Status: F Test: EOS #; Value: 0.2; Range: 0.0-0.50; Units: K/mm3; Status: F Test: BASO #; Value: 0.2; Range: 0.0-0.2; Units: K/mm3; Status: F Test: LARGE UNSTAINED CELL #; Value: 0.1; Range: 0.0-0.4; Units: K/mm3; Status: F Lab Order: [facility]; SPEC'M 10/18/16 03:14 Test: GLUCOSE, FASTING; Value: 100; Range: 70-105; Units: MG/DL; Status: F Test: BLOOD UREA NITROGEN; Value: 8; Range: 7-18; Units: MG/DL; Status: F Test: CREATININE FOR GFR; Value: 0.65; Range: 0.55-1.02; Units: MG/DL; Status: F Test: GLOMERULAR FILTRATION RATE; Value: > 60.0; Range: >60; Status: F Test: SODIUM LEVEL; Value: 141; Range: 136-145; Units: MEQ/L; Status: F Test: POTASSIUM SERUM; Value: 4.2; Range: 3.5-5.1; Units: MEQ/L; Status: F Test: CHLORIDE LEVEL; Value: 103; Range: 98-107; Units: MEQ/L; Status: F Test: CARBON DIOXIDE LEVEL; Value: 29; Range: 21-32; Units: MEQ/L; Status: F Test: ANION GAP; Value: 9; Range: 8-16; Units: MEQ/L; Status: F Test: CALCIUM LEVEL; Value: 8.5; Range: 8.5-10.1; Units: MG/DL; Status: F Test Note: ; Units are mL/min/1.73 m2 Chronic Kidney Disease Staging per NKF: Stage I & II GFR >=60 Normal to Mildly Decreased Stage III GFR 30-59 Moderately Decreased Stage IV GFR 15-29 Severely Decreased Stage V GFR <15 Very Little GFR Left ESRD GFR <15 on CHEMICALS DISTILLER Lab Order: -Blood Culture; SPEC'M 10/18/16 03:14 Test: BLOOD CULTURE; Value: No growth after 24 hours . All specimens observed; Status: F Test: BLOOD CULTURE; Value: for 5 days. Results final at that time.; Status: F Test: BLOOD CULTURE; Value: No Growth after 48 hours. All Specimens observed; Status: F Test: BLOOD CULTURE; Value: for 7 days. Results final at that time.; Status: F Lab Order: BLOOD CULTURES; SPEC'M 10/18/16 04:59 Test: BLOOD CULTURE; Value: No growth after 24 hours . All specimens observed; Status: F Test: BLOOD CULTURE; Value: for 5 days. Results final at that time.; Status: F Test: BLOOD CULTURE; Value: No Growth after 48 hours. All Specimens observed; Status: F Test: BLOOD CULTURE; Value: for 7 days. Results final at that time.; Status: F Lab Order: HCG,Serum Qualitative; SPEC'M 10/18/16 03:14 Test: HCG, SERUM QUALITATIVE; Value: NEGATIVE; Range: NEGATIVE; Status: F Radiology Order: Forearm (radius/ulna) Test: Forearm (radius/ulna) REASON FOR EXAMINATION: Trauma; Clinical: Trauma.; ; Technique: AP and lateral views of the right forearm.; ; Findings:; Osseous structures are intact and there is no evidence for acute fracture or; dislocation. Joint spaces are normal. Surrounding soft tissues are; unremarkable.; ; Impression:; Normal right forearm radiographs. No acute fracture or dislocation.; ; ; Signed by; Rufino Leiva MD 10/18/2016 06:38 A; Radiology Order: EXTREMITY NON VASCUL LIMITED Test: EXTREMITY NON VASCUL LIMITED REASON FOR EXAMINATION: R/O ABSSESS, BILATERAL; ; Bilateral upper extremity ultrasound.; Indication: Swelling and edema.; Findings:; Right-side:; Small fluid collection adjacent to the base of the thumb measuring 10.5x4x9.1 mm.; Loculated abscess is identified in the distal aspect of the right forearm measuring 3.1x1.8x2.8 cm. S; urrounding soft tissue edema suggestive of cellulitis.; Diffuse soft tissue edema and swelling in the proximal aspect of the left arm suggestive of celluliti; s. Associated hypoechoic area measuring 1.6x0.3x0.7 cm suggestive of phlegmon formation.; Impression:; Bilateral changes of cellulitis.; Bilateral multifocal fluid collections as described above.; ; Outcome: 05:04 Patient left against medical advice. br1 06:57 Discharge Assessment:. The patient is leaving AMA: AMA form signed, Notification of AMA af2 status is made to the charge nurse, the manager social, the ED attending physician. 06:58 Patient left the ED. af2 Signatures: Dispatcher [employer] EDMS Pauly Millard, Reg Reg gb Jeanine Booth RN RN lf1 Torsten Garcia MD MD br1 Sameera Sauceda, SECURITY SALES CONSULTANT SECURITY SALES CONSULTANT tmm1 Josseline Patel, SECURITY SALES CONSULTANT SECURITY SALES CONSULTANT rs6 Berta Mace RN RN af2 Dorina Mcadams, Reg Reg hs2 Simone Horowitz, Reg Reg pm4 Chart Complete MTDD
== END 2016-10-18 08:00 | disposition left against medical advice (07) ==
LOC: M ED 02:13
DX: L03.114 Cellulitis of left upper limb (principal); L03.113 Cellulitis of right upper limb; J45.909 Unspecified asthma, uncomplicated; F31.9 Bipolar disorder, unspecified; B18.2 Chronic viral hepatitis C; Z87.442 Personal history of urinary calculi; F19.10 Other psychoactive substance abuse, uncomplicated; I47.1 Supraventricular tachycardia; F17.210 Nicotine dependence, cigarettes, uncomplicated; Z79.51 Long term (current) use of inhaled steroids; Z79.899 Other long term (current) drug therapy
CPT/HCPCS: 36415; 73090; 76882; 80048; 84703; 85025; 87040; 96374; 96375; 99284; J3370

== ENCOUNTER 2017-04-23 22:17 | Emergency (ER) | payer OTHER ==
[~2017-04-23] VITALS: Ht 162.6 cm; Wt 76.0 kg
[2017-04-23] MEDS ORDERED: ACETAMINOPHEN 325 MG TAB PO ONE (22:45)
[2017-04-24 00:03] VITALS: BP 122/90
--- NOTE | 2017-04-24 01:07 | REP ---
Clinical: Chest pain . Comparison: 12/25/2014 . Findings: The mediastinum and cardiac silhouette are stable and within normal limits for portable technique. The lung ventura are clear without acute consolidation, effusion, or pneumothorax. Skeletal structures are intact. Impression: No acute cardiopulmonary process appreciated. Signed by Rufino Leiva MD 04/24/2017 12:58 A
--- NOTE | 2017-04-24 08:27 | ECGEPIP ---
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
== END 2017-04-24 00:07 | disposition home or self-care (01) ==
LOC: M ED 22:17
DX: R07.89 Other chest pain (principal); F19.10 Other psychoactive substance abuse, uncomplicated; Z87.891 Personal history of nicotine dependence; J30.2 Other seasonal allergic rhinitis; Z79.899 Other long term (current) drug therapy

== ENCOUNTER → 2017-12-19 | Outpatient (CLI) | payer OTHER, SELFPAY | LOC: M OUTALCOH 12:49 | DX: F11.20 Opioid dependence, uncomplicated (principal); F15.20 Other stimulant dependence, uncomplicated ==

== ENCOUNTER 2018-12-11 21:00 | Emergency (ER) | payer MEDICAID, OTHER ==
[~2018-12-11] VITALS: Ht 154.9 cm; Wt 92.5 kg
[2018-12-11] MEDS ORDERED: METH10CO PO (21:07)
--- NOTE | 2018-12-11 21:30 | ECGEPIP ---
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
[2018-12-11] MEDS ORDERED: MECLIZINE 25 MG TABLET PO ONE (22:00)
[2018-12-11 22:54] LABS: INFLUENZA A AMPLIFICATION NEGATIVE (NEGATIVE); INFLUENZA B AMPLIFICATION NEGATIVE (NEGATIVE)
[2018-12-11] MEDS ORDERED: MECL-68 PO (23:13)
[2018-12-11] MEDS ORDERED: NYST50SS PO (23:13)
[2018-12-11 23:25] VITALS: BP 106/65
== END 2018-12-11 23:26 | disposition home or self-care (01) ==
LOC: M ED 21:00
DX: J06.9 Acute upper respiratory infection, unspecified (principal); B37.0 Candidal stomatitis; J45.909 Unspecified asthma, uncomplicated; F33.9 Major depressive disorder, recurrent, unspecified; F41.9 Anxiety disorder, unspecified; Z79.890 Hormone replacement therapy; F17.210 Nicotine dependence, cigarettes, uncomplicated

== ENCOUNTER 2019-01-20 19:39 | Emergency (ER) | payer MEDICAID, OTHER ==
[~2019-01-20] VITALS: Ht 162.6 cm; Wt 94.3 kg
[~2019-01-20 19:39] MED LIST changes: +MECL-68 PO; +METH10CO PO; +NYST50SS PO
[2019-01-20] MEDS ORDERED: ONDANSETRON 4MG/2ML VIAL (J2405) IV ONE (20:30)
[2019-01-20] MEDS ORDERED: KETOROLAC 30 MG/ML VIAL (J1885) IV ONE (20:30)
[2019-01-20] MEDS ORDERED: NS 1,000 ML IV ONE (20:30)
[2019-01-20 21:06] LABS: BASO % 0.3 % (0.0-1.0); EOS # 0.2 10^3/uL (0.0-0.50); EOS % 1.5 % (0.0-3.0); HEMATOCRIT 39.7 % (36.0-47.0); HEMOGLOBIN 12.8 g/dl (12.0-15.5); LYMPH # 2.6 10^3/uL (1.5-4.5); LYMPH % 17.9 % (24.0-44.0); MEAN CORPUSCULAR HEMOGLOBIN 27.5 pg (27.0-33.0); MEAN CORPUSCULAR HGB CONC 32.2 g/dl (32.0-36.5); MEAN CORPUSCULAR VOLUME 85.2 fl (80.0-96.0); MONO # 1.3 10^3/uL (0.0-0.8); NEUTROPHILS # 10.3 10^3/uL (1.8-7.7); NEUTROPHILS % 70.8 % (36.0-66.0); PLATELET COUNT, AUTOMATED 357 10^3/uL (150-450); RED BLOOD COUNT 4.66 10^6/uL (4.00-5.40); WHITE BLOOD COUNT 14.6 10^3/uL (4.0-10.0)
[2019-01-20 21:25] LABS: ERYTHROCYTE SEDIMENTATION RATE 26 mm/hr (0-20)
[2019-01-20 21:31] LABS: ALBUMIN 3.2 GM/DL (3.2-5.2); ALT/SGPT 16 U/L (12-78); BILIRUBIN,DIRECT < 0.1 MG/DL (0.0-0.2); BILIRUBIN,TOTAL 0.3 MG/DL (0.2-1.0); BLOOD UREA NITROGEN 11 MG/DL (7-18); C REACTIVE PROTEIN QUANTITATIV 8.45 MG/DL (0.00-0.30); CARBON DIOXIDE LEVEL 28 MEQ/L (21-32); CHLORIDE LEVEL 101 MEQ/L (98-107); CREATININE FOR GFR 0.79 MG/DL (0.55-1.30); GLOMERULAR FILTRATION RATE > 60.0 (>60); GLUCOSE, FASTING 83 MG/DL (70-100); POTASSIUM SERUM 4.6 MEQ/L (3.5-5.1); SODIUM LEVEL 133 MEQ/L (136-145); TOTAL PROTEIN 8.7 GM/DL (6.4-8.2)
[2019-01-20] MEDS ORDERED: CEFTAROLINE FOSAMIL 600 MG in D5W MINI-BAG PLUS 50 ML IV ONE (21:45)
--- NOTE | 2019-01-20 23:11 | REPVR ---
EXAM: US Right Breast Limited EXAM DATE/TIME: 01/20/2019 9:56 PM CLINICAL HISTORY: 33 years old, female; Breast pain; Right; Additional info: Mass right breast/? Abscess TECHNIQUE: Imaging protocol: Limited ultrasound of Right breast with image documentation, including axilla when performed. COMPARISON: US BREAST U/S UNILATERAL LIMITED 10/26/2015 6:16 PM FINDINGS: US breast: Moderate diffuse soft tissue swelling. No organized collection. IMPRESSION: Moderate diffuse soft tissue swelling. No abscess. Electronically signed by: Devang Rosario On 01/20/2019 23:11:29 PM
[2019-01-20] MEDS ORDERED: LIDOCAINE W/EPINEPHRINE 1% 20ML VIAL SC ONE (23:45)
[2019-01-21] MEDS ORDERED: DOXY100C37 PO (00:06)
[2019-01-21 00:48] VITALS: BP 93/54
== END 2019-01-21 00:50 | disposition home or self-care (01) ==
LOC: M ED 19:39
DX: L73.2 Hidradenitis suppurativa (principal); L02.411 Cutaneous abscess of right axilla; F11.20 Opioid dependence, uncomplicated; Z86.14 Personal history of Methicillin resistant Staphylococcus aureus infection; Z87.442 Personal history of urinary calculi; Z79.899 Other long term (current) drug therapy
CPT/HCPCS: 10060; 76642; 80048; 80076; 81001; 83605; 85025; 85652; 86140; 87040; 87070; 87077; 87088; 87186; 87205; 87880; 96361; 96365; 96366; 96375; 99284; J0712; J1885; J2405

== ENCOUNTER → 2019-02-09 | Outpatient (CLI) | payer OTHER ==
[~2019-02-09] MED LIST changes: +DOXY100C37 PO
[2019-02-09 15:53] LABS: APPEARANCE, URINE HAZY (CLEAR); BACTERIA, URINE AUTO 1+ (NEGATIVE); BILIRUBIN, URINE AUTO NEGATIVE (NEGATIVE); BLOOD, URINE BLOOD NEGATIVE (NEGATIVE); COLOR, URINE YELLOW (YELLOW); GLUCOSE, URINE (UA) AUTO NEGATIVE (NEGATIVE); KETONE, URINE AUTO TRACE mg/dL (NEGATIVE); LEUKOCYTE ESTERASE, URINE AUTO 1+ (NEGATIVE); MUCUS, URINE SMALL (NEGATIVE); NITRITE, URINE AUTO NEGATIVE (NEGATIVE); PROTEIN, URINE AUTO NEGATIVE (NEGATIVE); RBC, URINE AUTO 4 /HPF (0-3); SPECIFIC GRAVITY URINE AUTO 1.026 (1.002-1.035); SQUAMOUS EPITHELIAL CELL UR AU 2 /HPF (0-6); WBC, URINE AUTO 3 /HPF (0-3)
[2019-02-09 15:55] LABS: BASO % 0.3 % (0.0-1.0); EOS # 0.2 10^3/uL (0.0-0.50); EOS % 2.2 % (0.0-3.0); HEMATOCRIT 37.9 % (36.0-47.0); HEMOGLOBIN 12.2 g/dl (12.0-15.5); LYMPH # 2.6 10^3/uL (1.5-4.5); LYMPH % 27.7 % (24.0-44.0); MEAN CORPUSCULAR HEMOGLOBIN 27.1 pg (27.0-33.0); MEAN CORPUSCULAR HGB CONC 32.2 g/dl (32.0-36.5); MEAN CORPUSCULAR VOLUME 84.2 fl (80.0-96.0); MONO # 0.6 10^3/uL (0.0-0.8); MONO % 6.5 % (0.0-5.0); NEUTROPHILS # 5.9 10^3/uL (1.8-7.7); PLATELET COUNT, AUTOMATED 335 10^3/uL (150-450); WHITE BLOOD COUNT 9.4 10^3/uL (4.0-10.0)
[2019-02-09 16:21] LABS: ALBUMIN 3.2 GM/DL (3.2-5.2); ALT/SGPT 19 U/L (12-78); BILIRUBIN,TOTAL 0.4 MG/DL (0.2-1.0); BLOOD UREA NITROGEN 11 MG/DL (7-18); CALCIUM LEVEL 8.1 MG/DL (8.5-10.1); CARBON DIOXIDE LEVEL 27 MEQ/L (21-32); CHLORIDE LEVEL 105 MEQ/L (98-107); CHOLESTEROL LEVEL 130 MG/DL (<200); CREATININE FOR GFR 0.79 MG/DL (0.55-1.30); GLOMERULAR FILTRATION RATE > 60.0 (>60); GLUCOSE, FASTING 91 MG/DL (70-100); HDL CHOLESTEROL 40 MG/DL (>40); HEMOGLOBIN A1c 5.6 %; LDL CHOLESTEROL 55 MG/DL (<100); NON-HDL-C 90 MG/DL; POTASSIUM SERUM 3.7 MEQ/L (3.5-5.1); SODIUM LEVEL 140 MEQ/L (136-145); THYROID STIMULATING HORMONE 0.583 uIU/ML (0.358-3.740); TOTAL PROTEIN 7.8 GM/DL (6.4-8.2); TRIGLYCERIDES LEVEL 173 MG/DL (<150)
== END ==
LOC: M LAB 15:02
PROVIDERS: ATTEND Nurse Practitioner Family
DX: Z13.9 Encounter for screening, unspecified (principal); E11.9 Type 2 diabetes mellitus without complications

== ENCOUNTER → 2019-02-09 | Outpatient (CLI) | payer OTHER ==
[2019-02-09 15:55] LABS: HEMATOCRIT 37.4 % (36.0-47.0); MEAN CORPUSCULAR HEMOGLOBIN 26.4 pg (27.0-33.0); MEAN CORPUSCULAR HGB CONC 32.1 g/dl (32.0-36.5); MEAN CORPUSCULAR VOLUME 82.2 fl (80.0-96.0); PLATELET COUNT, AUTOMATED 351 10^3/uL (150-450); RED BLOOD COUNT 4.55 10^6/uL (4.00-5.40); WHITE BLOOD COUNT 9.2 10^3/uL (4.0-10.0)
[2019-02-09 16:15] LABS: ALBUMIN 3.3 GM/DL (3.2-5.2); ALT/SGPT 18 U/L (12-78); BILIRUBIN,TOTAL 0.4 MG/DL (0.2-1.0); BLOOD UREA NITROGEN 11 MG/DL (7-18); CALCIUM LEVEL 8.4 MG/DL (8.5-10.1); CARBON DIOXIDE LEVEL 27 MEQ/L (21-32); CHLORIDE LEVEL 106 MEQ/L (98-107); CREATININE FOR GFR 0.78 MG/DL (0.55-1.30); GLOMERULAR FILTRATION RATE > 60.0 (>60); GLUCOSE, FASTING 97 MG/DL (70-100); POTASSIUM SERUM 3.7 MEQ/L (3.5-5.1); SODIUM LEVEL 139 MEQ/L (136-145); TOTAL PROTEIN 7.5 GM/DL (6.4-8.2)
[2019-02-09 17:48] LABS: CHLAMYDIA DNA AMPLIFICATION NEGATIVE (NEGATIVE); GC DNA AMPLIFICATION NEGATIVE (NEGATIVE)
[2019-02-10 10:50] LABS: HEPATITIS B SURFACE ANTIGEN NEGATIVE (NEGATIVE)
[2019-02-10 11:19] LABS: HIV 1&2 SCREEN CENTAUR NEGATIVE (NEGATIVE)
[2019-02-10 11:21] LABS: HEPATITIS C VIRUS ABY INDEX > 11.0 INDEX (<0.8)
== END ==
LOC: M LAB 14:59
PROVIDERS: ATTEND Family Medicine
DX: F11.20 Opioid dependence, uncomplicated (principal)

== ENCOUNTER 2019-04-11 10:07 | Emergency (ER) | payer OTHER ==
[~2019-04-11] VITALS: Ht 162.6 cm; Wt 94.8 kg
[2019-04-11 10:07] VITALS: BP 115/77
[2019-04-11] MEDS ORDERED: BACT800T5 PO (10:33)
== END 2019-04-11 10:41 | disposition home or self-care (01) ==
LOC: M ED 10:07
DX: L73.2 Hidradenitis suppurativa (principal); J45.909 Unspecified asthma, uncomplicated; Z79.890 Hormone replacement therapy; F17.210 Nicotine dependence, cigarettes, uncomplicated

== ENCOUNTER 2019-10-17 12:51 | Emergency (ER) | payer OTHER ==
[~2019-10-17] VITALS: Ht 162.6 cm; Wt 90.5 kg
[~2019-10-17 12:51] MED LIST changes: +BACT800T5 PO; -MECL-68 PO; +MECL1TAB31 PO
[2019-10-17] MEDS ORDERED: IPRATROPIUM 0.5MG/ALBUTEROL 2.5MG INH SOL UD 3ML (DUONEB)(J7620) NEB PRN (13:15)
[2019-10-17] MEDS ORDERED: NS 1,000 ML IV ONE (13:15)
--- NOTE | 2019-10-17 14:01 | REP ---
PA and lateral chest: Comparison is 12/25/2014. The lung ventura are clear. The cardiac size is normal. The german[place], mediastinum, and skeletal structures are unremarkable. Impression: Negative PA and lateral chest. There is no interval change. Electronically Signed by Ilya Graham MD 10/17/2019 01:53 P
[2019-10-17 14:37] LABS: INFLUENZA A AMPLIFICATION NEGATIVE (NEGATIVE); INFLUENZA B AMPLIFICATION NEGATIVE (NEGATIVE)
[2019-10-17 15:45] VITALS: BP 122/74
--- NOTE | 2019-10-17 20:31 | ECGEPIP ---
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
== END 2019-10-17 16:04 | disposition left against medical advice (07) ==
LOC: M ED 12:51
DX: J06.9 Acute upper respiratory infection, unspecified (principal); Z53.20 Procedure and treatment not carried out because of patient's decision for unspecified reasons; I51.9 Heart disease, unspecified; J30.2 Other seasonal allergic rhinitis; F11.20 Opioid dependence, uncomplicated; F17.210 Nicotine dependence, cigarettes, uncomplicated; Z79.899 Other long term (current) drug therapy

== ENCOUNTER → 2019-11-13 | Outpatient (REF) | payer OTHER ==
[2019-11-13 15:37] LABS: CHLAMYDIA DNA AMPLIFICATION NEGATIVE (NEGATIVE); GC DNA AMPLIFICATION NEGATIVE (NEGATIVE)
== END ==
LOC: M LAB REF 13:22
PROVIDERS: ATTEND Surgery
DX: A74.9 Chlamydial infection, unspecified (principal)

== ENCOUNTER 2021-06-27 11:04 | Emergency (ER) | payer MEDICAID, OTHER ==
[~2021-06-27] VITALS: Ht 162.6 cm; Wt 72.7 kg
[~2021-06-27 11:04] MED LIST changes: -DOXY100C37 PO; +DOXY1CAP62 PO
[2021-06-27 12:00] VITALS: BP 134/85
[2021-06-27] MEDS ORDERED: ACETAMINOPHEN 325 MG TAB PO ONE (14:00)
[2021-06-27 14:06] LABS: BASO % 0.4 % (0.0-1.0); EOS % 0.3 % (0.0-3.0); HEMOGLOBIN 13.6 g/dl (12.0-15.5); LYMPH # 1.6 10^3/uL (1.5-5.0); LYMPH % 14.6 % (24.0-44.0); MEAN CORPUSCULAR HEMOGLOBIN 27.4 pg (27.0-33.0); MEAN CORPUSCULAR HGB CONC 33.2 g/dl (32.0-36.5); MEAN CORPUSCULAR VOLUME 82.5 fl (80.0-96.0); MONO # 1.1 10^3/uL (0.0-0.8); MONO % 10.6 % (2.0-8.0); NEUTROPHILS # 7.9 10^3/uL (1.5-8.5); NEUTROPHILS % 73.6 % (36.0-66.0); PLATELET COUNT, AUTOMATED 314 10^3/uL (150-450); RED BLOOD COUNT 4.97 10^6/uL (4.00-5.40); WHITE BLOOD COUNT 10.7 10^3/uL (4.0-10.0)
[2021-06-27 14:31] LABS: HCG, SERUM QUALITATIVE NEGATIVE (NEGATIVE)
[2021-06-27 14:42] LABS: ALBUMIN 3.2 GM/DL (3.2-5.2); ALT/SGPT 51 U/L (12-78); BILIRUBIN,DIRECT < 0.1 MG/DL (0.0-0.2); BILIRUBIN,TOTAL 0.3 MG/DL (0.2-1.0); BLOOD UREA NITROGEN 12 MG/DL (7-18); CALCIUM LEVEL 9.5 MG/DL (8.5-10.1); CARBON DIOXIDE LEVEL 25 MEQ/L (21-32); CHLORIDE LEVEL 106 MEQ/L (98-107); CK-MB VALUE MASS < 1.0 NG/ML (<3.6); CPK CREATINE PHOSPHOKINASE 31 U/L (26-192); CREATININE FOR GFR 0.69 MG/DL (0.55-1.30); GLOMERULAR FILTRATION RATE > 60.0 (>60); GLUCOSE, FASTING 92 MG/DL (70-100); MB/CK RELATIVE INDEX 3.23 (< OR =4); NT-PRO BNP 156 PG/ML (<125); SODIUM LEVEL 136 MEQ/L (136-145); THYROID STIMULATING HORMONE 0.088 uIU/ML (0.358-3.740); THYROXINE (T4) 12.9 UG/DL (4.5-12.0); TOTAL PROTEIN 8.8 GM/DL (6.4-8.2); TROPONIN I < 0.02 NG/ML (< 0.10)
[2021-06-27] MEDS ORDERED: ISOVUE-370 76% 100ML VIAL As Ordered ONE (14:57)
--- NOTE | 2021-06-27 14:59 | REP ---
INDICATION: DYSPNEA/COUGH COMPARISON: 10/17/2019 TECHNIQUE: Portable AP view of the chest FINDINGS: The mediastinum and cardiac silhouette are stable and within normal limits for portable technique. The lung ventura are clear without acute consolidation, effusion, or pneumothorax. Skeletal structures are intact. IMPRESSION: No acute cardiopulmonary process appreciated. <Electronically signed by Rufino Leiva > 06/27/21 [id number]
[2021-06-27 15:04] LABS: RSV AMPLIFICATION NEGATIVE (NEGATIVE)
[2021-06-27 17:05] LABS: ABG BASE EXCESS 1.6 (-2.0-2.0); ABG HCO3 24.9 MEQ/L (22.0-26.0); ABG O2 SATURATION 98.2 % (95.0-99.0); ABG PARTIAL PRESSURE O2 106.4 mmHg (75.0-100.0); ABG STANDARD HCO3 25.9 MEQ/L (22.0-26.0)
[2021-06-27] MEDS ORDERED: methylPREDNISolone 125MG 2ML VIAL IV ONE (17:15)
[2021-06-27] MEDS ORDERED: PRED10TA2 PO (17:18)
[2021-06-27] MEDS ORDERED: VENTAER INH (17:19)
--- NOTE | 2021-06-28 09:17 | CR ---
CONSULTATION DATE: 06/27/2021 CHIEF COMPLAINTS: 1. Diarrhea. 2. Chills. 3. Positive Coronavirus, here for monoclonal antibodies. HISTORY OF PRESENT ILLNESS: 36-year-old female with history of asthma and heroin abuse presented to the Emergency Room with 3 day history of chills and diarrhea three times a day without malaise, nausea, vomiting, shortness of breath, PND, lower extremity edema, loss of taste, loss of smell, changes in appetite, muscle aches that was found to be positive for Coronavirus. Hospitalist was asked to obtain consent for monoclonal antibodies. Patient has no other new complaints. PAST MEDICAL HISTORY: Asthma. PAST SURGICAL HISTORY: 1. Sinus surgery. 2. Laparoscopy. 3. Cath ablation. ALLERGIES: No known drug allergies. FAMILY HISTORY: Mother and father alive and well, unknown medical problems. SOCIAL HISTORY: Smoked cigarettes 1 cigarette a day. No alcohol use. Heroin abuse. REVIEW OF SYSTEMS: A 10 point system negative except for positive findings in HPI. PHYSICAL EXAMINATION: Vital signs: Thermistor probe 98, pulse 91, respiratory rate 22, blood pressure 134/85, 97% on room air. General: Awake, alert, oriented to person, place and time. No use of respiratory accessory muscles. HEENT: Poor dentition. Neck: No JVD or thyromegaly. Lungs: Clear to auscultation, no wheezes, rhonchi or rales. Heart: S1 and S2 sinus tachycardia. Abdomen: Soft, nontender, nondistended, positive bowel sounds. Extremities: No cyanosis, clubbing or pitting edema. LABORATORY DATA: White count 10, hemoglobin 13, hematocrit 41, platelets 314. Sodium 136, potassium 4, chloride 106, bicarb 25, BUN 12, creatinine 0.69, glucose 92. Lactic acid 0.7, calcium 9.5, total bilirubin 0.3, direct bilirubin less than 0.1. AST 47, ALT 51, alkaline phosphatase 108. Total CK 31, MB fraction less than 1. Troponin less than 0.02. BNP 156. Total protein 8.8, albumin 3.2. TSH 0.88. T4 12.9. hCG negative. IMAGING STUDIES: Chest x-ray: No acute cardiopulmonary process. ASSESSMENT: 36-year-old female, heroin abuse and asthma presented to the Emergency Room with 3 day history of diarrhea and chills, found to be Coronavirus positive. Patient is not hypoxic. Chest x-ray is clear without infiltrate. Patient has been consented. Risks and benefits for monoclonal antibody. 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 Patient is to return tomorrow to the COVID Unit to receive monoclonal antibodies. Consent has been signed. IMPRESSIONS/PLAN: 1. Coronavirus positive: Not hypoxic. Chest x-ray is clear. Patient will be given monoclonal antibodies tomorrow. She will be discharged from the ER today. She will be given Solu-Medrol, Benadryl and Tylenol prior to infusion and monitored after infusion to make sure there is no allergic reaction. 2. Asthma: Not in exacerbation. 3. Heroin abuse: Drug cessation counseling has been provided. 4. Abdominal TSH: Repeat thyroid function tests by primary care physician within a week of discharge. 5. Disposition: Discharge from the ER today. Return to the COVID Unit tomorrow for monoclonal antibody infusion.
--- NOTE | 2021-06-29 17:22 | ECGEPIP ---
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
== END 2021-06-27 19:01 | disposition home or self-care (01) ==
LOC: M ED 11:04
DX: U07.1 COVID-19 (principal); I51.9 Heart disease, unspecified; J45.909 Unspecified asthma, uncomplicated; F41.9 Anxiety disorder, unspecified; F33.9 Major depressive disorder, recurrent, unspecified; F11.10 Opioid abuse, uncomplicated; Z87.891 Personal history of nicotine dependence; Z91.048 Other nonmedicinal substance allergy status; Z87.442 Personal history of urinary calculi; Z98.890 Other specified postprocedural states
CPT/HCPCS: 36600; 71045; 80048; 80076; 82550; 82553; 82803; 83605; 83880; 84436; 84443; 84703; 85025; 85379; 87040; 87631; 93005; 93041; 96374; 99284; J2930

== ENCOUNTER 2021-06-28 11:00 | Outpatient (CLI) | payer MEDICAID, OTHER ==
[~2021-06-28] VITALS: Ht 162.6 cm; Wt 72.7 kg
[~2021-06-28 11:00] MED LIST changes: +ACETAMINOPHEN TAB 650MG DOSE (2X325MG) PO ONE; +ACETAMINOPHEN TAB 650MG DOSE (2X325MG) PO PRN; +ALBUTEROL 90 MCG/ACT 8GM HFA INHALER INH PRN; +ALBUTEROL SULFATE 2.5 MG/0.5 ML INH NEB SOLN INH PRN; +CASIRIVIMAB/IMDEVIMAB 1,200 MG in NS 250 ML IV ONE; +EPINEPHrine INJ 1 MG/ML 1ML AMP IM PRN; +NS 1,000 ML IV SCH; +PRED10TA2 PO; +VENTAER INH; +diphenhydrAMINE 50MG CAP PO ONE; +diphenhydrAMINE 50MG/ML VIAL (J1200) IV PRN; +methylPREDNISolone 125MG 2ML VIAL IV ONE; +methylPREDNISolone 125MG 2ML VIAL IV PRN
[2021-06-28 13:12] VITALS: BP 132/76
[2021-06-28 13:51] VITALS: BP 128/79
[2021-06-28 14:30] VITALS: BP 136/77
[2021-06-28 15:35] VITALS: BP 130/67
== END 2021-06-28 15:45 | disposition home or self-care (01) ==
LOC: M OPCLI4PR 11:00 → M MS4PR 11:03 → M OPCLI4PR 15:45
PROVIDERS: ATTEND General Practice
DX: U07.1 COVID-19 (principal)

== ENCOUNTER 2021-06-30 13:33 | Emergency (ER) | payer OTHER ==
[~2021-06-30] VITALS: Ht 162.6 cm; Wt 76.6 kg
[~2021-06-30 13:33] MED LIST changes: -ACETAMINOPHEN TAB 650MG DOSE (2X325MG) PO ONE; -ACETAMINOPHEN TAB 650MG DOSE (2X325MG) PO PRN; -ALBUTEROL 90 MCG/ACT 8GM HFA INHALER INH PRN; -ALBUTEROL SULFATE 2.5 MG/0.5 ML INH NEB SOLN INH PRN; -CASIRIVIMAB/IMDEVIMAB 1,200 MG in NS 250 ML IV ONE; -EPINEPHrine INJ 1 MG/ML 1ML AMP IM PRN; -NS 1,000 ML IV SCH; -diphenhydrAMINE 50MG CAP PO ONE; -diphenhydrAMINE 50MG/ML VIAL (J1200) IV PRN; -methylPREDNISolone 125MG 2ML VIAL IV ONE; -methylPREDNISolone 125MG 2ML VIAL IV PRN
[2021-06-30 13:34] VITALS: BP 138/75
== END 2021-06-30 15:55 | disposition home or self-care (01) ==
LOC: M ED 13:33
DX: U07.1 COVID-19 (principal); F17.200 Nicotine dependence, unspecified, uncomplicated; J30.2 Other seasonal allergic rhinitis